=== PATIENT | female | born 1935 | race Caucasian/White ===

== ENCOUNTER 2022-12-29 22:36 | Outpatient (CLI) | payer MEDICARE, OTHER, SELFPAY | END 2022-12-29 22:37 | disposition home or self-care (01) | LOC: AMB 12-31 10:57 | PROVIDERS: Visit Provider Family Medicine | DX: M53.3 Sacrococcygeal disorders, not elsewhere classified (principal) | CPT/HCPCS: A0998 ==

== ENCOUNTER 2023-02-05 10:38 | Inpatient (IN) | payer MEDICARE, SELFPAY ==
[2023-02-05 10:45] VITALS: BP 167/63; PULSE 66; RESP 18; TEMP 35.6; O2SAT 97; BMI 31.5
--- NOTE | 2023-02-05 11:06 | CRLHL7_ITS ---
For Patients: As a result of the Century Cures Act, medical imaging exams and procedure reports are released immediately into your electronic medical record. You may view this report before your referring provider. If you have questions, please contact your health care provider. Indication: Atraumatic knee pain. Technique: Right knee, 3 views. Comparison: None. Findings/Impression: Bones: Alignment is normal. No displaced fractures or bone lesions. Joint spaces: Trace joint effusion. Mild tricompartmental osteoarthritis. Soft tissues: Unremarkable. Dictated by Juan Maxwell MD @ 02/05/2023 12:46:14 PM (Electronically Signed)
--- NOTE | 2023-02-05 12:00 | ED.NURSE ---
Contacted RN at [facility] regarding pt discharge. Read DC instructions to RN. Randall RN stated that facility was not comfortable with pt returning to assisted living due to pt ambulation issues. Randall RN states she will check with facility and call back. notified.
--- NOTE | 2023-02-05 12:16 | ED.NURSE ---
Pt assisted to use restroom. Pt able to stand and pivot to the wheelchair with assist of 2. Pt had significant difficulty pivoting due to pain in R leg. Pt heavy assist of 2 to stand and turn. notified.
--- NOTE | 2023-02-05 12:18 | ED_ITS ---
HPI - General Adult General Date Seen: 02/05/23 Chief complaint: Extremity Pain/Injury, Lower Stated complaint: r knee pain Time Seen by Provider: 02/05/23 11:03 Source: RN notes reviewed Mode of arrival: EMS Limitations: other History of Present Illness HPI narrative: patient is an 87-year-old woman apparently here from an assisted living facility. She has been complaining of increased right knee pain and difficulty with ambulation over the past couple of days. That is the only history that I have, patient is not able to really provide any history, she does have dementia. She was continuously yelling please I need help whenever she was alone in the room, although as soon as some he was in there with her she would stop yelling. There is no reported falls, fevers, or other illness. Related Data Home Medications Medication Instructions Recorded Confirmed acetaminophen 500 mg tablet mg PO 02/05/23 calcium polycarbophil 625 mg 1,250 mg PO DAILY 02/05/23 02/05/23 tablet (Fiber-Lax) diclofenac sodium 1 % topical gel 4 g topical 3XD 02/05/23 02/05/23 docusate sodium 100 mg capsule 100 mg PO DAILY 02/05/23 02/05/23 escitalopram oxalate 10 mg tablet 10 mg PO DAILY anxiety 02/05/23 02/05/23 levothyroxine 100 mcg tablet 100 mcg PO DAILY 02/05/23 02/05/23 omeprazole 20 mg capsule,delayed 20 mg PO DAILY 02/05/23 02/05/23 release oxycodone 5 mg tablet 2.5 mg PO Q6H PRN moderate pain 02/05/23 02/05/23 risperidone 0.5 mg tablet 0.5 mg PO BID 02/05/23 02/05/23 trazodone 50 mg tablet 25 mg PO BID 02/05/23 02/05/23 white petrolatum 41 % topical 1 applic topical BID PRN 02/05/23 02/05/23 ointment (Aquaphor Baby Healing) Allergies Allergy/AdvReac Type Severity Reaction Status Date / Time codeine Allergy Unknown Verified 02/05/23 10:49 Review of Systems Status of ROS: Reports: unobtainable due to medical condition ( Dementia) PFSH PFS Social History Smoking Status: Unknown if ever smoked Exam Narrative: Exam Narrative: Vital signs reviewed. In general, alert, nontoxic elderly woman. Extremities: Examination of bilateral knee shows no effusion, erythema, warmth. She does not really cooperate with exam, difficult to assess range of motion. Distal CMS is normal, there is no significant edema. Skin: Warm dry well perfused. Neurologic: She is conversant, speech fluent. Unable to answer most questions including which knee is hurting her more. Const: Vital Signs, click to edit/add: Vital Signs - 24 hr 02/05/23 10:45 02/05/23 13:27 Temperature 96.1 F L Pulse Rate [Pulse Oximeter] 66 76 Respiratory Rate 18 Blood Pressure [Ri ght Upper Arm] 167/63 H 225/93 H Pulse Oximetry 97 97 Oxygen Delivery Me thod Room Air Room Air Documenting provider has reviewed patient's vital signs: yes Course Course Hospital Course: I did x-rays of the right knee which by my review did not show evidence of fracture. Degenerative changes noted. Final radiology read is negative, aside from trace joint effusion. Initially I had thought we would let her go home, but apparently she is in the memory care unit, technically assisted living, and they cannot manage her right now. I was told that a bed would be available in long-term care starting tomorrow. I did broaden her evaluation a little bit, checked basic labs, did an x-ray of her hip. I do not see any evidence of hip fracture. Her white blood cell count is normal, hemoglobin is 8.8, baseline is unknown. Her sed rate is elevated at 49. Metabolic panel is normal, CRP is normal at 0.8. With someone sitting in the room she was peaceful and quiet, she was doing some knitting. She sitting in chair without difficulty. She does complain of pain when she stands and tries to pivot on the right leg. I gave her oxycodone 2.5 mg as that is what she has for pain at the care facility. Plan will be admissi on to the hospital, pending placement in long-term care. Vital Signs Vital signs: Initial Vital Signs Temperature 96.1 F L 02/05/23 10:45 Temperature Source Temporal Artery Scan 02/05/23 10:45 Pulse Rate 66 02/05/23 10:45 Respiratory Rate 18 02/05/23 10:45 Blood Pressure 167/63 H 02/05/23 10:45 Blood Pressure Mean 97 02/05/23 10:45 Blood Pressure Position Sitting 02/05/23 10:45 Pulse Oximetry 97 02/05/23 10:45 Oxygen Delivery Method Room Air 02/05/23 10:45 Vital Signs Temperature 96.1 F L 02/05/23 10:45 Pulse Rate 66 02/05/23 10:45 Respiratory Rate 18 02/05/23 10:45 Blood Pressure 167/63 H 02/05/23 10:45 Pulse Oximetry 97 02/05/23 10:45 Oxygen Delivery Method Room Air 02/05/23 10:45 Temperature 96.1 F L 02/05/23 10:45 Pulse Rate 76 02/05/23 13:27 Respiratory Rate 18 02/05/23 10:45 Blood Pressure 225/93 H 02/05/23 13:27 Pulse Oximetry 97 02/05/23 13:27 Oxygen Delivery Method Room Air 02/05/23 13:27 Medical Decision Making Lab Data Labs: Lab Results 02/05/23 Range/Units 12:55 WBC 5.10 (4.50-11.00) K/uL RBC 3.28 L (4.00-5.20) m/uL Hgb 8.8 L (12.0-16.0) gm/dL Hct 29.3 L (33.0-51.0) % MCV 89 (80-100) fL MCH 27 (26-34) pg MCHC 30 L (32-36) gm/dL RDW Coeff of [place] 16.2 H (11.5-15.5) % Plt Count 155 (140-440) K/uL Neut % (Auto) 75.9 H (42.0-72.0) % Lymph % (Auto) 14.3 L (20-44) % [place] % (Auto) 6.9 (0.0-11.0) % Eos % (Auto) 2.5 (0.0-7.0) % Baso % (Auto) 0.4 (0.0-3.0) % Neut # (Auto) 3.90 (1.7-7.0) K/uL Lymph # (Auto) 0.70 L (0.90-2.90) K/uL [place] # (Auto) 0.40 (0.00-0.90) K/UL Eos # (Auto) 0.13 (0.00-0.50) K/uL Baso # (Auto) 0.02 (0.00-0.30) K/uL Abs Immat Gran (auto) 0.00 (0.00-0.30) K/uL Imm/Tot Granulo (auto) 0.0 % ESR 49 H (2-20) mm/hr Sodium 136 (135-149) mmol/L Potassium 4.1 (3.6-5.1) mmol/L Chloride 104 (96-114) mmol/L Carbon Dioxide 27 (20-32) mmol/L Anion Gap 5 L (7-15) mEq/L BUN 29 (7-30) mg/dL Creatinine 0.7 (0.5-1.5) mg/dL Estimated Creat Clear 40.74 Estimated GFR 84 ml/min Glucose 108 (60-115) mg/dL Calcium 8.1 L (8.4-10.6) mg/dL Total Bilirubin 0.2 (0.1-1.5) mg/dL Direct Bilirubin 0.0 (0.0-0.5) mg/dL AST 34 (12-35) U/L ALT 30 (4-35) U/L Alkaline Phosphatase 115 (40-150) U/L C-Reactive Protein 0.8 (0.5-1.0) mg/dL Total Protein 7.7 (6.0-8.3) g/dL Albumin 3.8 (3.3-5.0) g/dL Discharge Plan Discharge Clinical Impression: Knee pain, right Patient Disposition: [facility] Condition: Stable Instructions: Knee Pain (ED) Additional Instructions: Her x-rays are negative, knee exam is normal. Orthopedic follow-up would be reasonable if she continues to have increased pain. For now, she is on appropriate medications for pain. Ice may be helpful. If she develops redness or swelling, return for re-evaluation. Prescriptions: No Action acetaminophen 500 mg tablet PO Aquaphor Baby Healing 41 % ointment 1 applic topical BID PRN calcium polycarbophil [Fiber-Lax] 625 mg tablet 1,250 mg PO DAILY trazodone 50 mg tablet 25 mg PO BID levothyroxine 100 mcg tablet 100 mcg PO DAILY docusate sodium 100 mg capsule 100 mg PO DAILY omeprazole 20 mg capsule,delayed release(DR/EC) 20 mg PO DAILY risperidone 0.5 mg tablet 0.5 mg PO BID oxycodone 5 mg tablet 2.5 mg PO Q6H PRN (Reason: moderate pain) escitalopram oxalate 10 mg tablet 10 mg PO DAILY diclofenac sodium 1 % gel 4 g topical 3XD Stand Alone Forms: MyHealth Info Instructions
--- NOTE | 2023-02-05 12:25 | CRLHL7_ITS ---
For Patients: As a result of the Century Cures Act, medical imaging exams and procedure reports are released immediately into your electronic medical record. You may view this report before your referring provider. If you have questions, please contact your health care provider. Indication: Trauma. Technique: Pelvis/right hip, 4 views. Comparison: None. Findings/Impression: Bones: Alignment is normal. No displaced fractures or bone lesions. If pain persists and patient is unable to bear weight, consider cross-sectional imaging. Joint spaces: Unremarkable. Soft tissues: Unremarkable. Dictated by Juan Maxwell MD @ 02/05/2023 3:22:44 PM (Electronically Signed)
[2023-02-05] MEDS: OXYCODONE 5 MG TABLET 2.5 MG PO (12:51)
[2023-02-05 13:10] LABS: Basophils Absolute Auto 0.02 K/uL (0.00-0.30); Basophils Percent Auto 0.4 % (0.0-3.0); Eosinophils Absolute Auto 0.13 K/uL (0.00-0.50); Eosinophils Percent Auto 2.5 % (0.0-7.0); Hematocrit 29.3 % (33.0-51.0); Hemoglobin* 8.8 gm/dL (12.0-16.0); Lymphocytes Percent Auto 14.3 % (20-44); Mean Corpuscular HGB Conc 30 gm/dL (32-36); Mean Corpuscular Hemoglobin 27 pg (26-34); Mean Corpuscular Volume 89 fL (80-100); Monocytes Percent Auto 6.9 % (0.0-11.0); Neutrophils Percent Auto 75.9 % (42.0-72.0); Platelet Count* 155 K/uL (140-440); RDW Coefficient of Variation % 16.2 % (11.5-15.5); Red Blood Count 3.28 m/uL (4.00-5.20)
[2023-02-05 13:17] LABS: Slide Review Reflex No
[2023-02-05 13:23] LABS: Chloride* 104 mmol/L (96-114); Sodium* 136 mmol/L (135-149)
[2023-02-05 13:24] LABS: Albumin* 3.8 g/dL (3.3-5.0); Potassium* 4.1 mmol/L (3.6-5.1)
[2023-02-05 13:27] VITALS: BP 225/93; PULSE 76; O2SAT 97
[2023-02-05 13:27] LABS: Alanine Aminotransferase* 30 U/L (4-35); Alkaline Phosphatase* 115 U/L (40-150); Anion Gap 5 mEq/L (7-15); Aspartate Amino Transferase* 34 U/L (12-35); Bilirubin Total* 0.2 mg/dL (0.1-1.5); Blood Urea Nitrogen* 29 mg/dL (7-30); Calcium* 8.1 mg/dL (8.4-10.6); Carbon Dioxide* 27 mmol/L (20-32); Creatinine* 0.7 mg/dL (0.5-1.5); Est. Creatinine Clearance* 40.74; Estimated Glomerular Filt Rate 84 ml/min; Glucose* 108 mg/dL (60-115); Total Protein* 7.7 g/dL (6.0-8.3)
[2023-02-05 13:30] LABS: C Reactive Protein* 0.8 mg/dL (0.5-1.0)
--- NOTE | 2023-02-05 13:32 | ED.NURSE ---
Sitter in room with pt. Pt provided with meal tray in bed.
[2023-02-05 13:59] LABS: Erythrocyte SedimentationRate* 49 mm/hr (2-20)
--- NOTE | 2023-02-05 14:11 | ED.NURSE ---
Assisted pt out of bed and onto commode. Pt heavy assist of 2-3. Pt is able to stand with assist of 2-3 and then sit back down, but has trouble pivoting or turning at all due to her R leg pain. Pt placed in recliner after using commode. Sitter in room with pt.
--- NOTE | 2023-02-05 14:49 | ED.NURSE ---
Report called to M/S RN.
--- NOTE | 2023-02-05 16:06 | P.IMHP_ITS ---
Hospitalist- H&P: HPI History of Present Illness Date Seen: 02/05/23 Chief complaint: r knee pain Narrative: Lizzie Chavis is a 87 year old female resident of memory care in [place] brought to the emergency room for severe right knee pain keeping her from walking. Patient has dementia is unable to give significant history. She has been noted to be unable to bear weight on her right knee and complains of pain. No known injury. Other than her right knee pain she denies any other concerns though history is of uncertain reliability due to dementia [facility] Medical History (Updated 02/05/23 @ 16:03 by Axel Nunes MD) Dementia ?F03.90 - Unspecified dementia, unspecified severity, without behavioral disturbance, psychotic disturbance, mood disturbance, and anxiety (ICD-10) Dyslipidemia ?E78.5 - Hyperlipidemia, unspecified (ICD-10) Hypothyroidism ?E03.9 - Hypothyroidism, unspecified (ICD-10) GERD (gastroesophageal reflux disease) ?K21.9 - Gastro-esophageal reflux disease without esophagitis (ICD-10) Hypertension ?I10 - Essential (primary) hypertension (ICD-10) 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) Lymphedema ?I89.0 - Lymphedema, not elsewhere classified (ICD-10) Anemia ?D64.9 - Anemia, unspecified (ICD-10) Surgical History (Updated 02/05/23 @ 16:05 by Axel Nunes MD) History of hysterectomy for benign disease ?Z90.710 - Acquired absence of both cervix and uterus (ICD-10) 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) ?Z90.49 - Acquired absence of other specified parts of digestive tract (ICD- 10) History of esophagogastroduodenoscopy (EGD) ?Z98.890 - Other specified postprocedural states (ICD-10) History of cholecystectomy ?Z90.49 - Acquired absence of other specified parts of digestive tract (ICD- 10) History of cataract extraction ?Z98.49 - Cataract extraction status, unspecified eye (ICD-10) History of appendectomy ?Z90.49 - Acquired absence of other specified parts of digestive tract (ICD- 10) Social History (Updated 02/05/23 @ 16:09 by Axel Nunes MD) Narrative: She is a resident of memory care in [place]. Her son Thong is listed as primary contact. [phone]. She does not smoke. She does not drink alcohol. Smoking Status: Unknown if ever smoked Meds Home Medications and Allergies Home Medications Medication Instructions Recorded Confirmed Type acetaminophen 500 mg tablet 1,000 mg PO TID 02/05/23 02/05/23 History calcium polycarbophil 625 mg 1,250 mg PO DAILY 02/05/23 02/05/23 History tablet (Fiber-Lax) camphor-menthol 0.5 %-0.5 % lotion 1 applic topical BID 02/05/23 02/05/23 History (Anti-Itch (menthol-camphor)) cholecalciferol (vitamin D3) 50 50 mcg PO DAILY 02/05/23 02/05/23 History mcg (2,000 unit) capsule (D3-2000) diclofenac sodium 1 % topical gel 4 g topical 3XD 02/05/23 02/05/23 History docusate sodium 100 mg capsule 100 mg PO DAILY 02/05/23 02/05/23 History escitalopram oxalate 10 mg tablet 10 mg PO DAILY@20 anxiety 02/05/23 02/05/23 History levothyroxine 100 mcg tablet 100 mcg PO DAILY 02/05/23 02/05/23 History omeprazole 20 mg capsule,delayed 20 mg PO DAILY 02/05/23 02/05/23 History release oxycodone 5 mg tablet 2.5 mg PO Q6H PRN moderate pain 02/05/23 02/05/23 History risperidone 0.5 mg tablet 0.5 mg PO BID 02/05/23 02/05/23 History saliva stimulant comb. no.3 1 spray mucous membrane QID PRN 02/05/23 02/05/23 History sennosides 8.6 mg tablet (senna) 8.6 mg PO BID PRN 02/05/23 02/05/23 History trazodone 50 mg tablet 25 mg PO BID@16,20 02/05/23 02/05/23 History white petrolatum 41 % topical 1 applic topical BID 02/05/23 02/05/23 History ointment (Aquaphor Baby Healing) Allergies Allergy/AdvReac Type Severity Reaction Status Date / Time codeine Allergy Unknown Verified 02/05/23 10:49 Exam Narrative: Exam Narrative: She is sitting in a chair crocheting. She is hard of hearing. She is pleasant and cooperative without obvious agitation. Head is normal without trauma. Eyes normal. Faint no facial asymmetry. Oropharynx is normal. Neck is supple without mass or adenopathy. Respirations are clear to auscultation. Cardiovascular: S1, S2, 1 to 2/6 systolic ejection murmur heard across the precordium. Abdomen is soft. Bowel sounds are active. There is no tenderness or mass. Upper extremities are normal. Lower extremities have 2 to 3+ edema bilaterally. Inspection shows no apparent trauma. She tolerates range of motion in both hips without significant discomfort. Palpation over her thighs non, nontender. Palpation over her anterior right knee is mildly tender. She has a minimal joint effusion present there. There is no redness or warmth left knee is normal without tenderness. Edema at the ankles at 2 to 3+ bilaterally. She has intact pedal pulses. She has mild discomfort with flexion extension of the right knee and quite limited range of motion. Left knee without significant pain but also limited range of motion. Both knees extend to within about 10? of full extension. Const: Vital Signs, click to edit/add: Vital Signs - 24 hr 02/05/23 10:45 02/05/23 13:27 Temperature 96.1 F L Pulse Rate [Pulse Oximeter] 66 76 Respiratory Rate 18 Blood Pressure [Ri ght Upper Arm] 167/63 H 225/93 H Pulse Oximetry 97 97 Oxygen Delivery Me thod Room Air Room Air Documenting provider has reviewed patient's vital signs: yes Hospitalist - H&P: Result Labs Labs: Short CBC 02/05/23 Range/Units 12:55 WBC 5.10 (4.50-11.00) K/uL Hgb 8.8 L (12.0-16.0) gm/dL Hct 29.3 L (33.0-51.0) % Plt Count 155 (140-440) K/uL BMP 02/05/23 12:55 Sodium 136 Potassium 4.1 Chloride 104 Carbon Dioxide 27 BUN 29 Creatinine 0.7 Glucose 108 Calcium 8.1 L Liver Function 02/05/23 Range/Units 12:55 Total Bilirubin 0.2 (0.1-1.5) mg/dL Direct Bilirubin 0.0 (0.0-0.5) mg/dL AST 34 (12-35) U/L ALT 30 (4-35) U/L Alkaline Phosphatase 115 (40-150) U/L Albumin 3.8 (3.3-5.0) g/dL Imaging Right knee and hip radiographs: Attestation: I have reviewed the pertinent imaging results. (Right knee has some changes consistent with arthritis. Right hip is unremarkable. No fracture.) Assessment and Plan Assessment and plan (1) Knee pain, right: Status: Acute (2) Dementia: Status: Acute (3) Lymphedema: Status: Acute (4) Anemia: Problem comment: Normocytic, chronic, hemoglobin in September of 2015 was 9.4, hemoglobin in April 2022 was 10.3. Status: Acute Plan Patient is admitted to the hospital pending placement in a higher level of care. Indication for the higher level of care is fairly severe dementia combined with fairly severe right knee pain and disability. Could consider a intra-articular cortisone injection in that right knee. Uncertain how well patient would cooperate. Total time spent is 60 minutes, 45 minutes in coordination care and discussing with other providers ongoing evaluation management of knee pain and dementia
[2023-02-05 16:11] VITALS: BP 182/98; PULSE 74; RESP 18; TEMP 36.5; O2SAT 98; BMI 32.3
[2023-02-05] MEDS: TRAZODONE HCL 50 MG TABLET 25 MG PO ×2 (16:44→20:22)
--- NOTE | 2023-02-05 17:10 | PC.SOCIAL ---
Discharge plan: Spoke with nurse, Dottie at memory care on [facility] [phone] from the ED. Dottie stated she had spoken with [facility] and they had a bed for pt for admit tomorrow and had already spoken with family about the SNF stay being private pay. Called Pepper in admissions at [facility] who states they are not contracted with pt's insurance and have not been paid from her last stay at their facility so they can not accept pt to the nursing home facility. gas systems worker to follow up as needed regarding placement.
--- NOTE | 2023-02-05 18:54 | PC.NURSE ---
Dottie, nurse from [facility] returned call from medical underwriter and gave brief nurse to nurse report. Dottie states pt takes pills whole and feeds self. Pt up till yesterday 02/04 was dressing self with clothes set out. Pt up till 02/04 brushed teeth and hair with set up only. Pt has no food allergies per Dottie and pt drinks lots of decaf coffee. Pt also scratches upper torso and arms unconsciously during the day and uses aquaphor lotion bid. Pt walks indept with walker normally. Pt did receive 2/5 mg x3 doses yesterday for rt knee pain per Dottie. Pt wears brief for stress incont but is continent of bowel and bladder. Dottie is unsure of pt's last BM.
[2023-02-05 19:00] VITALS: BP 188/70; PULSE 110; RESP 18; TEMP 36.8; O2SAT 96
[2023-02-05] MEDS: risperiDONE 0.5 MG TABLET PO (20:22)
[2023-02-05] MEDS: ACETAMINOPHEN 500 MG TABLET 1000 MG PO (20:22)
[2023-02-06] VITALS (7 sets, daily range): BP systolic 170–200; BP diastolic 70–98; PULSE 63–69; RESP 14–18; TEMP 36.8–36.9; O2SAT 95–98
[2023-02-06] MEDS: OXYCODONE 5 MG TABLET 2.5 MG PO (05:39)
--- NOTE | 2023-02-06 06:21 | PC.NURSE ---
Oriented to self only. Patient requires EZ stand for transfers, patient tolerated transfers well. Up x 4 between [id number] to use the restroom, patient attempting to self transfer out of bed at those time. Remains continent of bladder and bowel. Patient had several hours of yelling out please help me, oh god please hurry when answering patients calling out she becomes call and many times is unsure why she is calling out, not able to redirect patient. Patient sounds distressed with calling out and becomes louder when yelling. Pain to right knee reported at 0545, administered 2.5mg of oxycodone for pain. Assisted to chair at 0615.
[2023-02-06] MEDS: LEVOTHYROXINE 100 MCG TABLET PO (06:50)
[2023-02-06] MEDS: OMEPRAZOLE 20 MG CAPSULE DR PO (08:29)
[2023-02-06] MEDS: ACETAMINOPHEN 500 MG TABLET 1000 MG PO ×3 (08:29→20:10)
[2023-02-06] MEDS: PSYLLIUM HUSK (WITH SUGAR) 12 GM PACKET PO (08:29)
[2023-02-06] MEDS: risperiDONE 0.5 MG TABLET PO ×2 (08:29→20:16)
--- NOTE | 2023-02-06 09:21 | P.IMPN_ITS ---
Progress Note: A&P Assessment and plan (1) Knee pain, right: Problem details: - ddx: age related changes vs PMR (anemia with elevated ESR, although no other joint complaints, anemia is chronic and normocytic) - appreciate input from therapies - cognitive impairment limits ability to tolerate intra-articular injection Status: Acute (2) Dementia: Problem details: - no agitation, on Risperdone Status: Acute (3) Lymphedema: Problem details: - stable Status: Acute (4) Anemia: Problem details: - normocytic, chronic: Hgb 07/09 was 8.9, Hgb in 05/08 was 10.3, Hgb in September of 2015 was 9.4 Status: Acute Plan - await placement for rehab - appreciate input from PT/OT/SW - deanna Benito updated by phone, questions answered. DNR/DNI status confirmed (noted on POLST form as well) Subjective Date Seen: 02/06/23 Interval history: Lizzie had some anxiety overnight, no aggression or agitation. Received one dose of Oxycodone overnight, no complaints of knee pain for me this morning. She is awaiting therapy evaluations; will likely need SNF upon discharge. Hgb 8.8 (stable, outpatient baseline 9-10), normocytic. No evidence of acute bleeding. Exam Narrative: Exam Narrative: GEN: Alert and pleasant, sitting comfortably in bedside chair CV: RRR, holosystolic murmur heard best RSB R: LCTA bilaterally without concerning wheezing, air movement adequate Ext: symmetric 2+ pitting edema BLE, no significant effusion or erythema over R knee, tolerates palpation well during exam Skin: No concerning skin lesions or rashes on exposed skin Neuro: No focal deficits, no resting tremor Psych: Cognitive impairment is evident, no agitation Const: Vital Signs, click to edit/add: Vital Signs - 24 hr 02/05/23 10:45 02/05/23 13:27 02/05/23 16:11 Temperature 96.1 F L 97.7 F Pulse Rate [Pulse Oximeter] 66 76 Pulse Rate [Right Brachial] 74 Pulse Rate [Right Pulse Oximeter] Respiratory Rate 18 18 Blood Pressure [Ri ght Arm] 182/98 H Blood Pressure [Ri ght Upper Arm] 167/63 H 225/93 H Pulse Oximetry 97 97 98 Oxygen Delivery Me thod Room Air Room Air Room Air 02/05/23 19:00 08/23/23 03:00 02/06/23 08:03 Temperature 98.3 F 98.3 F Pulse Rate [Pulse Oximeter] Pulse Rate [Right Brachial] Pulse Rate [Right Pulse Oximeter] 110 H 67 Respiratory Rate 18 14 16 Blood Pressure [Ri ght Arm] 188/70 H 175/70 H Blood Pressure [Ri ght Upper Arm] Pulse Oximetry 96 97 Oxygen Delivery Me thod Room Air Room Air Labs Labs: Laboratory Results - last 24 hr 02/05/23 12:55 WBC 5.10 RBC 3.28 L Hgb 8.8 L Hct 29.3 L MCV 89 MCH 27 MCHC 30 L RDW Coeff of [place] 16.2 H Plt Count 155 Neut % (Auto) 75.9 H Lymph % (Auto) 14.3 L [place] % (Auto) 6.9 Eos % (Auto) 2.5 Baso % (Auto) 0.4 Neut # (Auto) 3.90 Lymph # (Auto) 0.70 L [place] # (Auto) 0.40 Eos # (Auto) 0.13 Baso # (Auto) 0.02 Abs Immat Gran (auto) 0.00 Imm/Tot Granulo (auto) 0.0 ESR 49 H Sodium 136 Potassium 4.1 Chloride 104 Carbon Dioxide 27 Anion Gap 5 L BUN 29 Creatinine 0.7 Estimated Creat Clear 40.74 Estimated GFR 84 Glucose 108 Calcium 8.1 L Total Bilirubin 0.2 Direct Bilirubin 0.0 AST 34 ALT 30 Alkaline Phosphatase 115 C-Reactive Protein 0.8 Total Protein 7.7 Albumin 3.8
[2023-02-06 13:25] LABS: Appearance Urine Clear (Clear); Bilirubin Urine Negative (Negative); Blood Urine Negative (Negative); Color Urine Yellow (Yellow); Glucose Urine Negative (Negative); Ketones Urine Negative (Negative); Leukocyte Esterase Urine Trace (Negative); Nitrite Urine Positive (Negative); Protein Urine 1+ (Negative); Urobilinogen Urine 0.2 (0.2-1.0)
[2023-02-06 13:33] LABS: Bacteria Urine Many; RBC Urine 0-2 (0-2)
--- NOTE | 2023-02-06 17:06 | PC.SOCIAL ---
Addendum entered by GERA Bailey 02/08/23 15:12: Correction of note: Pt's son's name is Thong, not Manish. Original Note: Discharge planning: Called pt's sonManish, regarding d/c plan. Son is requesting placement in a facility that can meet pt's needs. He requested social worker school contact [facility] [place]. Son is aware placement will most likely be private pay and he is agreeable to this. Pt has assisted care insurance which has been used for the [facility] assisted living stay. Emailed list of fci facilities to son. If [facility] does nto accept pt, son will provide list of additional facilities to contact for placement. Called [facility] and faxed information for evaluation for admit. Awaiting call back from [facility] regarding decision on admit. drop pit worker to follow up as needed.
[2023-02-06] MEDS: TRAZODONE HCL 50 MG TABLET 25 MG PO ×2 (17:18→20:11)
--- NOTE | 2023-02-06 18:39 | PC.NURSE ---
End of shift- Alert only to self. VS on RA, HTN BP, pt reports pain in her R knee when there is any weight bearing. Sometimes will call out help me, and yells out random phrases. Has been entertained with wheelchair rides as well as a baby doll. Currently waiting for placement to a SNF. UA was obtained today because of frequency as well as foul smelling urine. Had bacteria present, but hard to know if she is symptomatic so per Dr Nunes no treatment with Abx.
[2023-02-07] MEDS: risperiDONE 0.5 MG TABLET 0.25 MG PO (01:48)
[2023-02-07 03:00] VITALS: RESP 18
--- NOTE | 2023-02-07 06:51 | PC.NURSE ---
Shift note: Pt has been confused with agitations. Frequently calls by yelling and attempt to self transfer several times. Bed alarm has been in place and Risperidone PRN given which appeared partially effective. Pt had frequency of urination. Restful night in place.
[2023-02-07] MEDS: LEVOTHYROXINE 100 MCG TABLET PO (06:57)
[2023-02-07 07:00] VITALS: BP 150/70; PULSE 71; RESP 18; TEMP 36.1; O2SAT 98
[2023-02-07 07:18] LABS: Basophils Percent Auto 0.2 % (0.0-3.0); Hematocrit 31.7 % (33.0-51.0); Hemoglobin* 9.5 gm/dL (12.0-16.0); Immature Granulocytes Pct Auto 0.2 %; Lymphocytes Percent Auto 12.6 % (20-44); Mean Corpuscular HGB Conc 30 gm/dL (32-36); Mean Corpuscular Hemoglobin 27 pg (26-34); Mean Corpuscular Volume 88 fL (80-100); Monocytes Percent Auto 6.7 % (0.0-11.0); Neutrophils Percent Auto 77.3 % (42.0-72.0); Platelet Count* 157 K/uL (140-440); Red Blood Count 3.59 m/uL (4.00-5.20); White Blood Count* 4.06 K/uL (4.50-11.00)
[2023-02-07 07:20] LABS: Slide Review Reflex No
[2023-02-07 07:25] LABS: Chloride* 103 mmol/L (96-114); Potassium* 4.7 mmol/L (3.6-5.1); Sodium* 136 mmol/L (135-149)
[2023-02-07 07:27] LABS: Creatinine* 0.7 mg/dL (0.5-1.5); Est. Creatinine Clearance* 40.74; Estimated Glomerular Filt Rate 84 ml/min
[2023-02-07 07:28] LABS: Anion Gap 4 mEq/L (7-15); Blood Urea Nitrogen* 21 mg/dL (7-30); Calcium* 8.8 mg/dL (8.4-10.6); Carbon Dioxide* 29 mmol/L (20-32); Glucose* 123 mg/dL (60-115)
[2023-02-07] MEDS: PSYLLIUM HUSK (WITH SUGAR) 12 GM PACKET PO (09:05)
[2023-02-07] MEDS: ACETAMINOPHEN 500 MG TABLET 1000 MG PO ×3 (09:06→20:37)
[2023-02-07] MEDS: risperiDONE 0.5 MG TABLET PO ×2 (09:06→20:36)
[2023-02-07] MEDS: DOCUSATE SODIUM 100 MG CAPSULE PO (09:06)
[2023-02-07] MEDS: OMEPRAZOLE 20 MG CAPSULE DR PO (09:06)
--- NOTE | 2023-02-07 10:55 | P.IMPN_ITS ---
Progress Note: A&P Assessment and plan (1) Knee pain, right: Problem details: - ddx: age related changes vs PMR (anemia with elevated ESR, although no other joint complaints, anemia is chronic and normocytic) - appreciate input from therapies - cognitive impairment limits ability to tolerate intra-articular injection Status: Acute (2) Dementia: Problem details: - no agitation but does seem frustrated when alone, on Risperdone - reviewed case with Dipak Ojeda DNP ([facility]) on 02/07: no new med recommendations at this time, continue to support activities Status: Acute (3) Lymphedema: Problem details: - stable Status: Acute (4) Anemia: Problem details: - normocytic, chronic: Hgb 07/09 was 8.9, Hgb in 05/08 was 10.3, Hgb in September of 2015 was 9.4 - current Hgb 9.5 Status: Acute Plan - per above - await SNF placement Subjective Date Seen: 02/07/23 Interval history: Lizzie continues to have intermittent anxiety, primarily when left in her room. If she is unable to see caregivers, she will often yell for help. During the day yesterday, she sat out by the nurses station and did well. We continue to offer activities throughout the day for her. Has not had Oxycodone in the past 24 hours, remains on scheduled Tylenol. Hgb stable and baseline without evidence of acute bleeding. Urine culture growing GNRs, unclear if she is having any true UTI symptoms. Deferring antibiotic therapy at this time. Exam Narrative: Exam Narrative: GEN: Awake and sitting in hallway in her wheelchair, cognitive impairment evident, nontoxic HEENT: EOMIs bilaterally, no scleral icterus CV: Pulse palpates as regular rate and rhythm R: Breathing comfortably without tachpynea Ext: 1-2 + edema BLE Skin: No concerning skin lesions or rashes on exposed skin Const: Vital Signs, click to edit/add: Vital Signs - 24 hr 02/06/23 11:25 02/06/23 15:00 02/06/23 19:00 Temperature 98.5 F 98.5 F Pulse Rate [Right Pulse Oximeter] 63 69 68 Respiratory Rate 16 16 16 Blood Pressure [Ri ght Arm] 191/90 H 200/98 H 170/70 H Pulse Oximetry 97 95 98 Oxygen Delivery Me thod Room Air Room Air Room Air 02/06/23 23:00 02/06/23 23:30 02/07/23 03:00 Temperature Pulse Rate [Right Pulse Oximeter] 68 Respiratory Rate 18 18 Blood Pressure [Ri ght Arm] Pulse Oximetry [facility] 02/07/23 07:00 02/07/23 07:00 Temperature 97.0 F L Pulse Rate [Right Pulse Oximeter] 71 71 Respiratory Rate 18 18 Blood Pressure [Ri ght Arm] 150/70 H Pulse Oximetry 98 [facility] Air Labs Labs: Laboratory Results - last 24 hr 02/06/23 02/07/23 13:05 07:04 WBC 4.06 L RBC 3.59 L Hgb 9.5 L Hct 31.7 L MCV 88 MCH 27 MCHC 30 L RDW Coeff of Damion 16.0 H Plt Count 157 Neut % (Auto) 77.3 H Lymph % (Auto) 12.6 L [place] % (Auto) 6.7 Eos % (Auto) 3.0 Baso % (Auto) 0.2 Neut # (Auto) 3.10 Lymph # (Auto) 0.50 L [place] # (Auto) 0.30 Eos # (Auto) 0.10 Baso # (Auto) 0.00 Abs Immat Gran (auto) 0.00 Imm/Tot Granulo (auto) 0.2 Sodium 136 Potassium 4.7 Chloride 103 Carbon Dioxide 29 Anion Gap 4 L BUN 21 Creatinine 0.7 Estimated Creat Clear 40.74 Estimated GFR 84 Glucose 123 H Calcium 8.8 Urine Color Yellow Urine Appearance Clear Urine pH 7.0 Ur Specific [place] 1.020 Urine Protein 1+ A Urine Glucose (UA) Negative Urine Ketones Negative Urine Blood Negative Urine Nitrite Positive A Urine Bilirubin Negative Urine Urobilinogen 0.2 Ur Leukocyte Esterase Trace A Urine RBC 0-2 Urine WBC 2-5 Ur Squamous Epith Cells None Urine Bacteria Many A
[2023-02-07] MEDS: OXYCODONE 5 MG TABLET 2.5 MG PO (11:53)
[2023-02-07 14:26] VITALS: PULSE 67; RESP 18
[2023-02-07] MEDS: TRAZODONE HCL 50 MG TABLET 25 MG PO ×2 (16:52→20:35)
--- NOTE | 2023-02-07 19:12 | PC.NURSE ---
Shift note: Pt. alert and oriented to self. Hx of Dementia. Patient gets agitated and calls frequently by yelling out. Unable to assess pain. Bed alarm has been in place and Risperidone PRN given which appeared partially effective. Pt had frequency of urination throughout shift.
[2023-02-07 22:56] VITALS: RESP 18
[2023-02-07 23:30] VITALS: RESP 16
[2023-02-08 03:00] VITALS: RESP 18
[2023-02-08] MEDS: OXYCODONE 5 MG TABLET 2.5 MG PO (03:21)
--- NOTE | 2023-02-08 06:06 | PC.NURSE ---
Shift note: Pt slept well after 2100 medication until around 0100 where she started yelling and calling for help. Oxycodone 2.5mg given, frequently helped to the BR and fed with 2 slices of bread toast. Offered to stay around nurses station for monitoring.
[2023-02-08] MEDS: LEVOTHYROXINE 100 MCG TABLET PO (06:44)
[2023-02-08 07:00] VITALS: BP 170/79; PULSE 61; RESP 16; TEMP 35.9; O2SAT 96
[2023-02-08] MEDS: OMEPRAZOLE 20 MG CAPSULE DR PO (07:50)
[2023-02-08] MEDS: PSYLLIUM HUSK (WITH SUGAR) 12 GM PACKET PO (08:56)
[2023-02-08] MEDS: DOCUSATE SODIUM 100 MG CAPSULE PO (08:58)
[2023-02-08] MEDS: ACETAMINOPHEN 500 MG TABLET 1000 MG PO ×3 (08:58→20:38)
[2023-02-08] MEDS: risperiDONE 0.5 MG TABLET PO ×2 (09:00→20:38)
--- NOTE | 2023-02-08 14:21 | PM.ORCN ---
History of Present Illness HPI Time Seen by Provider: 13:30 Date Seen: 02/08/23 Consult date: 02/08/23 Requesting physician: Zoë De León Consult reason: joint pain Chief complaint: r knee pain Narrative: Lizzie is an 84 year-old female with advanced dementia. Ortho consulted by Dr. De León regarding right knee pain and inability to weightbear. Patient denies fall/injury, although she is an unreliable historian. Prior to admission to our hospital, Lizzie was able to weightbear with one person assist (gait belt). This morning, Lizzie complains mostly of right knee pain, but also bilateral leg pain and bilateral ankle pain. Patient is unable to bear weight x 1 day. History is quite limited. I witnessed the patient being transferred from the restroom to her recliner using a Desiy lift. Patient tolerated this transfer well without pain. Thirty minutes later, I returned to see Lizzie with Renetta Heller PA-C. Lizzie was resting comfortably in her recliner crocheting. Denies pain at rest. 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) Lymphedema ?I89.0 - Lymphedema, not elsewhere classified (ICD-10) Anemia ?D64.9 - Anemia, unspecified (ICD-10) Surgical History (Updated 02/05/23 @ 16:05 by Axel Nunes MD) History of hysterectomy for benign disease ?Z90.710 - Acquired absence of both cervix and uterus (ICD-10) 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) ?Z90.49 - Acquired absence of other specified parts of digestive tract (ICD-10) History of esophagogastroduodenoscopy (EGD) ?Z98.890 - Other specified postprocedural states (ICD-10) History of cholecystectomy ?Z90.49 - Acquired absence of other specified parts of digestive tract (ICD-10) History of cataract extraction ?Z98.49 - Cataract extraction status, unspecified eye (ICD-10) History of appendectomy ?Z90.49 - Acquired absence of other specified parts of digestive tract (ICD-10) Social History (Updated 02/05/23 @ 16:09 by Axel Nunes MD) Narrative: She is a resident of memory care in [place]. Her son Thong is listed as primary contact. [phone]. She does not smoke. She does not drink alcohol. What is your current living situation?: unable to answer Problems where you live: unable to answer Problems where you live details: increased eeds In the past 12 months, utilities in danger of being shut off: unable to answer In the past 12 mos, have been you worried that your food would run out before you had money to buy more?: unable to answer In the past 12 mos, the food you bought just didn't last and you didn't have money to buy more?: unable to answer Highest level of school completed/degree received: don't know Smoking Status: Unknown if ever smoked Second hand tobacco smoke exposure: No How often does anyone, including family, friends and others, physically hurt you: unable to answer How often does anyone, including family, friends and others, insult or talk down to you: unable to answer How often does anyone, including family, friends and others, threaten you with harm: unable to answer How often does anyone, including family, friends and others, scream or curse at you: unable to answer Meds Home Medications and Allergies Home Medications Medication Instructions Recorded Confirmed Type acetaminophen 500 mg tablet 1,000 mg PO TID 02/05/23 02/05/23 History calcium polycarbophil 625 mg 1,250 mg PO DAILY 02/05/23 02/05/23 History tablet (Fiber-Lax) camphor-menthol 0.5 %-0.5 % lotion 1 applic topical BID 02/05/23 02/05/23 History (Anti-Itch (menthol-camphor)) cholecalciferol (vitamin D3) 50 50 mcg PO DAILY 02/05/23 02/05/23 History mcg (2,000 unit) capsule (D3-2000) diclofenac sodium 1 % topical gel 4 g topical 3XD 02/05/23 02/05/23 History docusate sodium 100 mg capsule 100 mg PO DAILY 02/05/23 02/05/23 History escitalopram oxalate 10 mg tablet 10 mg PO DAILY@20 anxiety 02/05/23 02/05/23 History levothyroxine 100 mcg tablet 100 mcg PO DAILY 02/05/23 02/05/23 History omeprazole 20 mg capsule,delayed 20 mg PO DAILY 02/05/23 02/05/23 History release oxycodone 5 mg tablet 2.5 mg PO Q6H PRN moderate pain 02/05/23 02/05/23 History risperidone 0.5 mg tablet 0.5 mg PO BID 02/05/23 02/05/23 History saliva stimulant comb. no.3 1 spray mucous membrane QID PRN 02/05/23 02/05/23 History sennosides 8.6 mg tablet (senna) 8.6 mg PO BID PRN 02/05/23 02/05/23 History trazodone 50 mg tablet 25 mg PO BID@16,20 02/05/23 02/05/23 History white petrolatum 41 % topical 1 applic topical BID 02/05/23 02/05/23 History ointment (Aquaphor Baby Healing) Allergies Allergy/AdvReac Type Severity Reaction Status Date / Time codeine Allergy Unknown Verified 02/05/23 10:49 Ortho Exam Narrative Exam Narrative: Bilateral lower extremity exam: No erythema, induration or other cutaneous changes. No knee effusion. No ecchymosis throughout bilateral lower extremities. Diffuse bilateral medial knee pain. Diffuse pain throughout lower extremities to moderate palpation. Diffuse bilateral ankle pain. Bilateral knee ROM: 0-90 degrees. Visible valgus deformity to left knee. Right knee appears to have appropriate alignment. Full hip ROM without pain. CMS intact with 2+ Dorsalis pedis and Posterior Tibial pulses, digits pink, warm with brisk cap refill. Confirmed sensation distally. Const Vital Signs, click to edit/add: Vital Signs - 24 hr 02/07/23 14:26 02/07/23 22:56 02/07/23 23:30 Temperature Pulse Rate [Right Pulse Oximeter] 67 Respiratory Rate 18 18 16 Blood Pressure [Right Arm] Pulse Oximetry Oxygen Delivery Method 02/08/23 03:00 02/08/23 07:00 02/08/23 07:00 Temperature 96.6 F L Pulse Rate [Right Pulse Oximeter] 61 61 Respiratory Rate 18 16 Blood Pressure [Right Arm] 170/79 H Pulse Oximetry 96 Oxygen Delivery Method Room Air Documenting provider has reviewed patient's vital signs: yes Results Labs Labs: Laboratory Results - last 48 hr 02/07/23 02/07/23 07:04 11:08 WBC 4.06 L RBC 3.59 L Hgb 9.5 L Hct 31.7 L MCV 88 MCH 27 MCHC 30 L RDW Coeff of Damion 16.0 H Plt Count 157 Neut % (Auto) 77.3 H Lymph % (Auto) 12.6 L [place] % (Auto) 6.7 Eos % (Auto) 3.0 Baso % (Auto) 0.2 Neut # (Auto) 3.10 Lymph # (Auto) 0.50 L [place] # (Auto) 0.30 Eos # (Auto) 0.10 Baso # (Auto) 0.00 Abs Immat Gran (auto) 0.00 Imm/Tot Granulo (auto) 0.2 Sodium 136 Potassium 4.7 Chloride 103 Carbon Dioxide 29 Anion Gap 4 L BUN 21 Creatinine 0.7 Estimated Creat Clear 40.74 Estimated GFR 84 Glucose 123 H Calcium 8.8 TSH 14.400 H Lab Acknowledgement Test Added Diagnostic results Hip x-ray: image reviewed Knee x-ray: image reviewed Assessment and Plan Assessment and plan (1) Knee pain, right: Problem comment: Diffuse bilateral lower extremity pain. Status: Acute Assessment and Plan: Lizzie has diffuse bilateral lower extremity pain, likely the result of a diffuse inflammatory process possibly diet related. She has full range of motion of her right hip and knee without joint pain, but complains of pain everywhere my hands place pressure on her legs. I am uncertain why Lizzie is unable to place weight on her right leg. Right knee and right hip images were reviewed which show no acute fractures. She also does not have ecchymosis nor an effusion. An occult fracture is unlikely. Patient does have moderate medial compartment osteoarthritis, however this is not causing her diffuse lower extremity pain. At this time, I do not believe a cortisone injection would be beneficial. It would not alleviate the majority of her pain and would not likely impact her ability to weightbear. Hospitalist was notified and is in agreement to forgo a cortisone injection. Phone Orthopedics with any further questions/concerns. Total time spent: Total time spent is greater than 50% in coordination of care (as documented) at patient's floor/unit and/or counseling patient:
--- NOTE | 2023-02-08 14:41 | PM.IMPN1 ---
Progress Note: A&P Assessment and plan (1) Knee pain, right: Problem details: - diffuse bilateral lower extremity pain, appreciate input from therapies and Ortho - reassuring imaging, no lateralizing findings on exam Status: Acute (2) Dementia: Problem details: - intermittent agitation and frustration when alone, came to the hospital on Risperdone for this and possible hallucinations, could likely be tapered as an outpatient when in a stable setting - reviewed case with Dipak Ojeda DNP ([facility]) on 02/07: no new med recommendations at this time, continue to support activities Status: Acute (3) Lymphedema: Problem details: - stable Status: Acute (4) Anemia: Problem details: - normocytic, chronic: Hgb 07/09 was 8.9, Hgb in 05/08 was 10.3, Hgb in September of 2015 was 9.4 - current Hgb 9.5 Status: Acute (5) Hypothyroidism: Problem details: - TSH of 14 on 02/07 - Synthroid increased from 100mcg to 112 on 02/08 Status: Acute Plan - per above - awaiting Memory Care placement - son updated by phone Subjective Date Seen: 02/08/23 Interval history: Lizzie continues to have intermittent agitation, primarily when alone. She tends to have less yelling and anxiety when someone is in the room with her. She was placed on Risperidone at previous facility for the agitation that accompanies her dementia. Urine growing ESBL, no urinary symptoms evident, deferring antibiotic therapy. Exam Narrative: Exam Narrative: GEN: Laying comfortably in bed, hard of hearing CV: Pulse palpates as RRR R: Breathing comfortably, no tachypnea Ext: wwp, no concerning edema Psych: Cognitive impairment is evident Const: Vital Signs, click to edit/add: Vital Signs - 24 hr 02/07/23 22:56 02/07/23 23:30 02/08/23 03:00 Temperature Pulse Rate [Right Pulse Oximeter] Respiratory Rate 18 16 18 Blood Pressure [Ri ght Arm] Pulse Oximetry Oxygen Delivery Me thod 02/08/23 07:00 02/08/23 07:00 Temperature 96.6 F L Pulse Rate [Right Pulse Oximeter] 61 61 Respiratory Rate 16 Blood Pressure [Ri ght Arm] 170/79 H Pulse Oximetry 96 Oxygen Delivery Me thod Room Air
[2023-02-08 15:00] VITALS: RESP 16
--- NOTE | 2023-02-08 15:12 | PC.SOCIAL ---
Discharge planning: Received call from Rosette at [facility] unit at [facility], stating they expect to have a bed available on Saturday and will accept pt on Saturday between 03-27 after they have reviewed the RN notes from the weekend. Rosette confirmed that [facility] is not contracted with pt's insurance but they have worked with them before and feel confident that this will not be a problem. Pt is going to be private pay at the facility. Called son, Thong, who is aware and agrees with this plan. Thong will contact the implementation coordinator at [facility] to discuss what should be brought for her and payment information. Son states he will not be available Saturday to transport but will be available by phone as needed. Son requested to have pt transported by non-emergency ambulance and is aware and agrees to pay privately for the transportation.
[2023-02-08] MEDS: TRAZODONE HCL 50 MG TABLET 25 MG PO ×2 (15:32→20:11)
--- NOTE | 2023-02-08 18:44 | PC.NURSE ---
Nursing Care Hours: [id number] Pt this shift alert to birthday but forgot last name in morning. Cooperative with cares but anxious when left alone in room and call out frantically for help. Also anxious during EZ stand transfers and yells out in pain. Manager Of Loss Prevention Operations noticed however, talking through each step of the transfer with pt keeps pt calm and no c/o pain reported. Eating and drinking with verbal prompts for starting. Also needs verbal prompts for taking pills. HTN in AM with manual cuff. Pedal pulses bilat feet present. pt wiggles toes of R foot but not of left foot. Tongue drifts off to L side when speaking. Smile equal. Equal strength bilat hands.
[2023-02-08 20:25] VITALS: BP 188/70; PULSE 70; RESP 20; TEMP 36.6; O2SAT 97
[2023-02-08 20:59] VITALS: PULSE 70; RESP 20
[2023-02-08 23:30] VITALS: RESP 16
[2023-02-09 03:00] VITALS: RESP 16
--- NOTE | 2023-02-09 06:08 | PC.NURSE ---
Pt is oriented to self and place. Afebrile. Pt denies pain, chest pain, SOB and N/V. Pt is tolerating a regular diet and voiding.?Pt is up with A2 and Ez stand. Pt slept throughout most of night.?Night uneventful. Pt did not require PHILLIP 1:1 overnight.
[2023-02-09] MEDS: LEVOTHYROXINE 112 MCG TABLET PO (06:33)
[2023-02-09 07:00] VITALS: BP 182/80; PULSE 66; RESP 18; TEMP 36.5; O2SAT 99
[2023-02-09] MEDS: OMEPRAZOLE 20 MG CAPSULE DR PO (07:30)
[2023-02-09] MEDS: ACETAMINOPHEN 500 MG TABLET 1000 MG PO ×3 (08:30→20:19)
[2023-02-09] MEDS: DOCUSATE SODIUM 100 MG CAPSULE PO (08:31)
[2023-02-09] MEDS: PSYLLIUM HUSK (WITH SUGAR) 12 GM PACKET PO (08:31)
--- NOTE | 2023-02-09 09:32 | PM.IMPN1 ---
Progress Note: A&P Assessment and plan (1) Knee pain, right: Problem details: - diffuse bilateral lower extremity pain, appreciate input from therapies and Ortho - reassuring imaging, no lateralizing findings on exam Status: Acute (2) Hypothyroidism: Problem details: - TSH of 14 on 02/07 - Synthroid increased from 100mcg to 112 on 02/08 -02/09; will check FT4 to make sure patient doesn't have subclinical hypothyroidism Status: Acute (3) Dementia: Problem details: - intermittent agitation and frustration when alone, came to the hospital on Risperdone for this and possible hallucinations, could likely be tapered as an outpatient when in a stable setting - reviewed case with Dipak Ojeda DNP ([facility]) on 02/07: no new med recommendations at this time, continue to support activities Status: Acute (4) Lymphedema: Problem details: - stable Status: Acute (5) Anemia: Problem details: - normocytic, chronic: Hgb 07/09 was 8.9, Hgb in 05/08 was 10.3, Hgb in September of 2015 was 9.4 Status: Acute Subjective Date Seen: 02/09/23 Interval history: no acute events overnight hypertensive this am complains of itching hx limited by dementia Exam Narrative: Exam Narrative: Gen: no acute distress HEENT: NCAT EOMI mmm CV: RRR normal s1 s2 Lungs: CTAB Abd: Soft,nt, nd Neuro: Alert, not oriented, nonfocal screening?exam MSK: age appropriate muscle mass Const: Vital Signs, click to edit/add: Vital Signs - 24 hr 02/08/23 15:00 02/08/23 20:25 02/08/23 20:59 Temperature 97.8 F Pulse Rate [Right Pulse Oximeter] 70 70 Respiratory Rate 16 20 20 Blood Pressure [Ri ght Arm] 188/70 H Pulse Oximetry 97 Oxygen Delivery Me thod Room Air 02/08/23 23:30 02/09/23 03:00 02/09/23 07:00 Temperature 97.7 F Pulse Rate [Right Pulse Oximeter] 66 Respiratory Rate 16 16 18 Blood Pressure [Ri ght Arm] 182/80 H Pulse Oximetry 99 Oxygen Delivery Me thod Room Air 02/09/23 07:00 Temperature Pulse Rate [Right Pulse Oximeter] 66 Respiratory Rate 18 Blood Pressure [Ri ght Arm] Pulse Oximetry Oxygen Delivery Me thod
[2023-02-09] MEDS: diphenhydrAMINE 25 MG CAPSULE PO ×2 (09:33→16:39)
[2023-02-09] MEDS: risperiDONE 0.5 MG TABLET PO ×2 (09:33→20:21)
[2023-02-09] MEDS: TRAZODONE HCL 50 MG TABLET 25 MG PO ×2 (15:34→20:20)
--- NOTE | 2023-02-09 15:41 | PC.NURSE ---
Nursing Care Hours: [id number] Pt this shift alert and cooperative. Disoriented to place and time. Eating and drinking without issue. Voiding on toilet. Transfers with EZ stand, tolerates well as long as staff talk through each step. No c/o pain. C/o of itching all over, observed intense scratching over abdomen and legs. No rash or redness observed, scant abrasions noted but no bleeding. Lotion applied frequently without relief. Benadryl ordered and given, treatment effective. 1:1 with PHILLIP most of shift. Was able to tolerate being alone in room for about an hour during lunch, otherwise will yell out frantically for help. Tongue sitting towards left of mouth in pt talking causing slurred speech. Smile and extremity strength equal. HTN in morning. During reading, pt getting agitated with the squeezing of the cuff.
[2023-02-09 19:00] VITALS: BP 190/80; PULSE 79; RESP 18; TEMP 36.4; O2SAT 95
[2023-02-09 23:00] VITALS: PULSE 79; RESP 18
--- NOTE | 2023-02-09 23:01 | PC.NURSE ---
Shift note: Pt continue to be confuse, yelling and calling for help occasionally. 1:1 PHILLIP care PRN today which is improvement from previous day. Pt fight Bp cuff when during Bp measurement.Transfer with Ez stand with A2 to BR. complained of itching and Benadryl was given at 1720.
[2023-02-09 23:30] VITALS: RESP 18
[2023-02-10] MEDS: OXYCODONE 5 MG TABLET 2.5 MG PO (02:46)
[2023-02-10 03:00] VITALS: RESP 16
[2023-02-10] MEDS: diphenhydrAMINE 25 MG CAPSULE PO ×3 (03:00→20:07)
--- NOTE | 2023-02-10 06:37 | PC.NURSE ---
07: EZ stand. Up to bathroom frequently when awake. [place]. Needs frequent redirection with tasks, very forgetful. c/o itchiness, scratch pearl noted on lower back, lotion applied & Benadryl given. States ?ow? when standing, prn oxy given.
[2023-02-10] MEDS: LEVOTHYROXINE 112 MCG TABLET PO (07:32)
[2023-02-10] MEDS: OMEPRAZOLE 20 MG CAPSULE DR PO (07:32)
[2023-02-10 08:22] VITALS: BP 140/78; PULSE 74; RESP 18; TEMP 36.6; O2SAT 97
[2023-02-10 09:52] LABS: Free T4 Free Thyroxine* 0.98 ng/dL (0.70-1.85)
[2023-02-10] MEDS: ACETAMINOPHEN 500 MG TABLET 1000 MG PO ×2 (10:03→16:32)
[2023-02-10] MEDS: DOCUSATE SODIUM 100 MG CAPSULE PO (10:04)
[2023-02-10] MEDS: PSYLLIUM HUSK (WITH SUGAR) 12 GM PACKET PO (10:04)
[2023-02-10] MEDS: risperiDONE 0.5 MG TABLET PO ×2 (10:05→20:06)
[2023-02-10] MEDS: EMOLLIENT BASE CREAM 5 APPLIC TOPICAL ×3 (13:06→20:08)
[2023-02-10] MEDS: risperiDONE 0.5 MG TABLET 0.25 MG PO (13:07)
--- NOTE | 2023-02-10 13:21 | PM.IMPN1 ---
Progress Note: A&P Assessment and plan (1) Dementia: Problem details: - intermittent agitation and frustration when alone, came to the hospital on Risperdone for this and possible hallucinations, could likely be tapered as an outpatient when in a stable setting - reviewed case with Dipak Ojeda DNP ([facility]) on 02/07: no new med recommendations at this time, continue to support activities Status: Acute (2) Knee pain, right: Problem details: - diffuse bilateral lower extremity pain, appreciate input from therapies and Ortho - reassuring imaging, no lateralizing findings on exam Status: Acute (3) Hypothyroidism: Problem details: - TSH of 14 on 02/07 - Synthroid increased from 100mcg to 112 on 02/08 -02/09; will check FT4 to make sure patient doesn't have subclinical hypothyroidism Status: Acute (4) Lymphedema: Problem details: - stable Status: Acute (5) Anemia: Problem details: - normocytic, chronic: Hgb 07/09 was 8.9, Hgb in 05/08 was 10.3, Hgb in September of 2015 was 9.4 Status: Acute Subjective Date Seen: 02/10/23 Interval history: Daily Progress Note - Hospital Medicine Day #:6 CC: Dementia, severe. Progressive left knee osteoarthritis. Has surpassed care available at her memory assisted living facility. Awaiting placement. OVERNIGHT UPDATES FROM STAFF & MED, LAB, IMAGING UPDATES No new issues. Patient continues to be confused and calls out frequently. Reorients easily. Complaining of itchy skin. Still has trouble standing on her own, easy stand her sling at this point. Long discussion with orthopedics at the end of last week. They did not feel a joint injection was indicated. Objective: Vitals: Mildly hypertensive. Not hypoxic. Eating well. see above Lungs: Clear. Cardiac: S1S2. Disposition/Potential discharge - Likely to [facility] to [facility] Today I spent 50minutes seeing the patient, reviewing Expanse and EPIC notes/diagnostics, discussing the care plan with our care time that includes social work, PT/OT, pharmacy, RT, retirement and documenting my impressions and plan in the medical record. Exam Const: Vital Signs, click to edit/add: Vital Signs - 24 hr 02/09/23 19:00 02/09/23 23:00 02/09/23 23:30 Temperature 97.5 F L Pulse Rate [Right Pulse Oximeter] 79 79 Respiratory Rate 18 18 18 Blood Pressure [Ri ght Arm] 190/80 H Pulse Oximetry 95 Oxygen Delivery Me thod Room Air 02/10/23 03:00 02/10/23 08:22 Temperature 97.8 F Pulse Rate [Right Pulse Oximeter] 74 Respiratory Rate 16 18 Blood Pressure [Ri ght Arm] 140/78 H Pulse Oximetry 97 Oxygen Delivery Me thod Room Air Labs Labs: Laboratory Results - last 24 hr 02/10/23 07:07 TSH 18.500 H Free T4 0.98
--- NOTE | 2023-02-10 13:51 | P.DS_ITS ---
DS: Providers Provider Date Seen: 02/10/23 Date of admission: 02/05/23 14:54 Primary care physician: Not a Local Provider Admitting Clinician: Rocío Mendez MD Consults: 02/05/23 16:36 Consult to Physical Therapy [CONS] Routine Comment: Reason(s) for PT Consult:: Weakness Any Restrictions?:: No Restrictions 02/06/23 Consult to Occupational Therapy [CONS] Routine Comment: Reason(s) for OT Consult:: Evaluate and Treat Any Restrictions?:: No Restrictions Attending Physician on discharge: [facility] Date of Discharge: 02/10/23 DS: Diagnosis Discharge Diagnosis (1) Dementia: Status: Acute Problem details: - intermittent agitation and frustration when alone, came to the hospital on Risperdone for this and possible hallucinations, could likely be tapered as an outpatient when in a stable setting - reviewed case with Dipak Ojeda DNP ([facility]) on 02/07: no new med recommendations at this time, continue to support activities (2) Knee pain, right: Status: Acute Problem details: - diffuse bilateral lower extremity pain, appreciate input from therapies and Ortho - reassuring imaging, no lateralizing findings on exam (3) Hypothyroidism: Status: Acute Problem details: - TSH of 14 on 02/07 - Synthroid increased from 100mcg to 112 on 02/08 -02/09; will check FT4 to make sure patient doesn't have subclinical hypothyroidism (4) Lymphedema: Status: Acute Problem details: - stable (5) Anemia: Status: Acute Problem details: - normocytic, chronic: Hgb 07/09 was 8.9, Hgb in 05/08 was 10.3, Hgb in September of 2015 was 9.4 (6) Pruritus: Status: Acute Problem details: -likely more behavioral than dermatologic -topical emollients and triamcinolone p.r.n. -Benadryl or Atarax has been effective as well DS: Summary Hospital Course Hospital Course: HOSPITALIST DISCHARGE SUMMARY ATTENDING PHYSICIAN: Greta Rich MD FINAL DIAGNOSIS: Dementia, severe Chronic pain HOSPITAL FOLLOWUP ISSUES: 1. Continued surveillance for management of chronic pain 2. Continued surveillance and active management of dementia REFERRALS WHILE ADMITTED: PT, OT, social work REFERRALS AFTER DISCHARGE: Memory care, long term BRIEF HOSPITAL COURSE: Teresa was admitted for worsening knee pain, inability to remain 1 assist in her assisted living memory care. She has longstanding dementia which is slowly and progressively getting worse. However, inexplicably, she started to complain of acute knee pain. X-rays, exam, labs were all reassuring. Ortho evaluated. We felt like this was more behavioral than organic knee pain. She can be distracted from the pain. She also complained of pruritus. Again without this was more behavior 0. She called out frequently for comfort. She would call out for help but then when somebody was bedside she was calm. We all felt like this was more of an activated dementia than a musculoskeletal primary problem. SUBSTANTIVE NOTATIONS ON IMAGING, LAB, MICROBIOLOGY/PATHOLOGY STUDIES: See attached record DISCHARGE MEDICATIONS: See Reconciled list - SIGNIFICANT CHANGES: We added topical emollients and p.r.n. Benadryl for her itching. We added a p.r.n. dose of respirate all for her activated agitation. REVIEW OF SYSTEMS No new chest pain or dyspnea Pain controlled No voiding difficulties Tolerating diet challenge PHYSICAL EXAM: CONSTITUTIONAL: Calm when someone is in the room. Agitated when alone. VITAL SIGNS: see record. HEENT: Normocephalic, atraumatic. PERRL, EOMI, conjunctivae pink, no scleral icterus. Ears and nose externally normal. Pharynx normal. NECK: No JVD. No carotid bruit, no thyromegaly, no adenopathy. CHEST: Clear to auscultation bilaterally. HEART: S1 and S2 normal. Edema ABDOMEN: Soft, nontender. Normal bowel sounds. MUSCULOSKELETAL: No gross joint deformity or swelling. NEURO: Cranial nerves intact. Grossly intact. No asymmetric findings. SKIN: No rashes, petechiae, concerning changes PSYCHIATRIC: Mood euthymic. DISPOSITION: senior care/memory care Time spent on discharge 37 minutes. Status at Discharge Functional status at discharge: wheelchair bound Overall status at discharge: patient is not back to baseline Time Spent with Patient Time attestation: Total time spent providing and/or coordinating discharge services: Time spent: Greater than 30 minutes Exam Const: Vital Signs, click to edit/add: Vital Signs - 24 hr 02/09/23 19:00 02/09/23 23:00 02/09/23 23:30 Temperature 97.5 F L Pulse Rate [Right Pulse Oximeter] 79 79 Respiratory Rate 18 18 18 Blood Pressure [Ri ght Arm] 190/80 H Pulse Oximetry 95 Oxygen Delivery Me thod Room Air 02/10/23 03:00 02/10/23 08:22 Temperature 97.8 F Pulse Rate [Right Pulse Oximeter] 74 Respiratory Rate 16 18 Blood Pressure [Ri ght Arm] 140/78 H Pulse Oximetry 97 Oxygen Delivery Me thod Room Air DS: Data Data Completed and Pending Labs on day of discharge: Labs from last 24 hours 02/10/23 07:07 TSH 18.500 H Free T4 0.98 Discharge Plan Discharge Disposition: [facility] Date of Admission: 02/05/23 14:54 Attending Provider on Discharge: Greta Rich Primary Care Provider: Provider,Not a Local Condition: Stable Discharge Medications: New triamcinolone acetonide 0.1 % Cream 1 applic topical TID Qty: 30 0RF diphenhydramine HCl 25 mg Capsule 25 mg PO Q6H PRNQty: 30 0RF risperidone 0.5 mg Tablet 0.25 mg PO DAILY PRN (Reason: Agitation) Qty: 20 0RF emollient [Vanicream] Cream 5 applic topical TID Qty: 500 0RF Continued acetaminophen 500 mg tablet 1,000 mg PO TID Aquaphor Baby Healing 41 % ointment 1 applic topical BID calcium polycarbophil [Fiber-Lax] 625 mg tablet 1,250 mg PO DAILY trazodone 50 mg tablet 25 mg PO BID@16,20 levothyroxine 100 mcg tablet 100 mcg PO DAILY docusate sodium 100 mg capsule 100 mg PO DAILY omeprazole 20 mg capsule,delayed release(DR/EC) 20 mg PO DAILY risperidone 0.5 mg tablet 0.5 mg PO BID escitalopram oxalate 10 mg tablet 10 mg PO DAILY@20 diclofenac sodium 1 % gel 4 g topical 3XD Anti-Itch (menthol-camphor) 0.5-0.5 % lotion 1 applic topical BID cholecalciferol (vitamin D3) [D3-2000] 50 mcg (2,000 unit) capsule 50 mcg PO DAILY sennosides [senna] 8.6 mg tablet 8.6 mg PO BID PRN saliva stimulant comb. no.3 [Biotene Moisturizing Mouth] 1 spray mucous membrane QID PRN Discontinued oxycodone 5 mg tablet 2.5 mg PO Q6H PRN (Reason: moderate pain) Discharge Orders: Discharge Order (Routine); Ordered 02/10/23 Ordered By: Greta Rich Additional Instructions: . Discharge Diet: Regular Follow Up Appointments: Provider,Not a Local [Primary Care Provider] - Forms: [facility] Info Instructions Admit to: SNF Discharge Potential: Fair Length of Stay: 30-90 days Can use facility standing orders?: Yes Code Status: DNR/DNI Rehab Potential: Fair Therapy: Physical Therapy and Occupational Therapy Therapy Orders: Evaluate and Treat and Gait Training Oxygen: No Urinary Catheter: No Orders are good >30 days: Yes Signature: Zoë De León MD
[2023-02-10 15:00] VITALS: PULSE 74; RESP 18
[2023-02-10] MEDS: TRIAMCINOLONE ACETONIDE CREAM 0.1 % 1 APPLIC TOPICAL ×2 (16:31→20:08)
[2023-02-10] MEDS: TRAZODONE HCL 50 MG TABLET 25 MG PO ×2 (16:31→20:06)
[2023-02-10 19:00] VITALS: BP 166/60; PULSE 66; RESP 16; TEMP 36.4; O2SAT 97
--- NOTE | 2023-02-10 19:57 | PC.NURSE ---
shift note: pt anxious and hollering out throughout the day. Pt Hollering help me. Pt redirected with activies and 1:1 company during the day. Pt scratching at times and expresses increased restlessness and anxiety. pt states Scratch me! I itch. Pt asked where itching the most pt states I don't know. Pt's back and buttocks with multiple scratch pearl. Dr. Botello notified and orders for vanicream and Triamolone cream to be applied. Pt medicated with PRN benadryl and PRN Risperadone for anxiety/itching. Pt using EZ lift for transfers. pt denies Rt knee pain. Pt had small soft BM this afternoon. Pt had to be assisted with passing initial stool.
[2023-02-10 20:10] VITALS: PULSE 66; RESP 16
[2023-02-10 23:30] VITALS: RESP 18
[2023-02-11 03:00] VITALS: RESP 18
--- NOTE | 2023-02-11 05:42 | PC.NURSE ---
END OF SHIFT NOTE: PT IS DEMENTED REQUIRING FREQUENT REDIRECTING. PT VERY ANXIOUS AND WILL CALL OUT FOR HELP WHEN LEFT IN ROOM ALONE. DENIES CP, SOB, N/V. D/T INCREASED WEAKNESS PT HAS BEEN TRANSFERRED VIA EZ STAND. VSS ON RA; AFEBRILE. PT C/O MID BACK PAIN 07/27. PT ALSO C/O BEING ITCHY AND IS SCRATCHING AT SCABS ON ARMS. PT WAS EDUCATED ON INFECTION CONTROL, NOT TO PICK OFF SCABS. BED ALARM ON AND CALL LIGHT WITHIN PT?S REACH.?
[2023-02-11] MEDS: LEVOTHYROXINE 112 MCG TABLET PO (06:17)
[2023-02-11] MEDS: OXYCODONE 5 MG TABLET 2.5 MG PO (06:37)
[2023-02-11 07:00] VITALS: BP 173/80; PULSE 110; RESP 20; TEMP 35.9; O2SAT 98
[2023-02-11] MEDS: PSYLLIUM HUSK (WITH SUGAR) 12 GM PACKET PO (08:33)
[2023-02-11] MEDS: OMEPRAZOLE 20 MG CAPSULE DR PO (08:34)
[2023-02-11] MEDS: ACETAMINOPHEN 500 MG TABLET 1000 MG PO ×3 (08:35→20:19)
[2023-02-11] MEDS: DOCUSATE SODIUM 100 MG CAPSULE PO (08:36)
[2023-02-11] MEDS: EMOLLIENT BASE CREAM 5 APPLIC TOPICAL ×3 (08:36→20:23)
[2023-02-11] MEDS: TRIAMCINOLONE ACETONIDE CREAM 0.1 % 1 APPLIC TOPICAL ×3 (08:36→20:23)
--- NOTE | 2023-02-11 09:52 | PC.SOCIAL ---
Discharge plan: Faxed updated notes to [facility] unit for review prior to admit there today. Received call back from [facility], stating they can not accept pt due to isolation needs. There is no private room available. recording studio setup worker to follow up as needed.
[2023-02-11] MEDS: risperiDONE 0.5 MG TABLET PO ×2 (09:59→20:22)
--- NOTE | 2023-02-11 14:41 | PM.IMPN1 ---
Progress Note: A&P Assessment and plan (1) Dementia: Problem details: - intermittent agitation and frustration when alone, came to the hospital on Risperdone for this and possible hallucinations, could likely be tapered as an outpatient when in a stable setting - reviewed case with Dipak Ojeda DNP ([facility]) on 02/07: no new med recommendations at this time, continue to support activities Status: Acute (2) Knee pain, right: Problem details: - diffuse bilateral lower extremity pain, appreciate input from therapies and Ortho - reassuring imaging, no lateralizing findings on exam Status: Acute (3) Hypothyroidism: Problem details: - TSH of 14 on 02/07 - Synthroid increased from 100mcg to 112 on 02/08 -02/09; will check FT4 to make sure patient doesn't have subclinical hypothyroidism Status: Acute (4) Lymphedema: Problem details: - stable Status: Acute (5) Anemia: Problem details: - normocytic, chronic: Hgb 07/09 was 8.9, Hgb in 05/08 was 10.3, Hgb in September of 2015 was 9.4 Status: Acute (6) Pruritus: Problem details: -likely more behavioral than dermatologic -topical emollients and triamcinolone p.r.n. -Benadryl or Atarax has been effective as well Status: Acute Plan 1. Still waiting placement acceptance for her. Metallurgical Lab Technician continues to work diligently at trying to achieve this. A possible lead that we had last week has now officially declined accepting her. Time Spent With Patient Total time spent: 30 min Subjective Time Seen by Provider: 07:30 Date Seen: 02/11/23 Interval history: Daily Progress Note - Hospital Medicine Day #:7 CC: Dementia, severe. Progressive left knee osteoarthritis. Has surpassed care available at her memory assisted living facility. Awaiting placement. No new issues. Patient continues to be confused and calls out frequently. Reorients easily. Still has trouble standing on her own, easy stand her sling at this point. Hospitalists had a discussion with orthopedics at the end of last week, and they did not feel a joint injection was indicated. Exam Narrative: Exam Narrative: Assess patient in the hallway and in her bedroom. Patient requires attention from nursing staff due to her wandering behaviors. When awake she is alert and oriented to self only not to place time or situation. Unable to carry out a meaningful dialogue or discussion. Lungs clear to auscultation. Heart tones with regular rhythm. Abdomen benign with active bowel sounds, soft, nontender. Extremities without edema. No focal motor neurologic deficits. Const: Vital Signs, click to edit/add: Vital Signs - 24 hr 02/10/23 15:00 02/10/23 19:00 02/10/23 20:10 Temperature 97.6 F Pulse Rate [Right Pulse Oximeter] 74 66 66 Respiratory Rate 18 16 16 Blood Pressure [Ri ght Arm] 166/60 H Pulse Oximetry 97 Oxygen Delivery Me thod Room Air 02/10/23 23:30 02/11/23 03:00 02/11/23 07:00 Temperature 96.6 F L Pulse Rate [Right Pulse Oximeter] 110 H Respiratory Rate 18 18 20 Blood Pressure [Ri ght Arm] 173/80 H Pulse Oximetry 98 Oxygen Delivery Me thod 02/11/23 07:00 Temperature Pulse Rate [Right Pulse Oximeter] 110 H Respiratory Rate 20 Blood Pressure [Ri ght Arm] Pulse Oximetry Oxygen Delivery Me thod Documenting provider has reviewed patient's vital signs: yes
[2023-02-11 15:00] VITALS: PULSE 80; RESP 18
[2023-02-11] MEDS: risperiDONE 0.5 MG TABLET 0.25 MG PO (15:03)
[2023-02-11] MEDS: diphenhydrAMINE 25 MG CAPSULE PO (16:50)
[2023-02-11] MEDS: TRAZODONE HCL 50 MG TABLET 25 MG PO ×2 (16:50→20:19)
[2023-02-11 17:48] VITALS: BP 189/79; PULSE 70; RESP 20; TEMP 35.9; O2SAT 97
--- NOTE | 2023-02-11 19:07 | PC.NURSE ---
Patient confused and yelling out when no one present in room. Staff gave 1:1 and offered frequent redirection which was effective. Up with EZ-stand lift for transfers and toileting. Pt scratching arms, lower back, under breasts and adb fold. Vanicream and Triamcinolone cream applied which was effective. PRN Benadryl administered this afternoon which was effective. Scheduled Tylenol administered for chronic pain. Tolerating regular diet well.
[2023-02-12] MEDS: OMEPRAZOLE 20 MG CAPSULE DR PO (05:47)
[2023-02-12] MEDS: LEVOTHYROXINE 112 MCG TABLET PO (05:49)
--- NOTE | 2023-02-12 06:31 | PC.NURSE ---
[id number]: Patient alert to self only and NATIVE. A2 w/EZ stand. Moderate amount of scratches to lower R. back and R. buttock. Patient also noted scratching on lower abdomen. Patient shouts out help me often but mostly cooperative with nursing cares. Aside from frequent trips to the BR patient did not have any episodes of extreme restlessness during shift.
[2023-02-12 07:00] VITALS: BP 150/72; PULSE 67; RESP 20; TEMP 36.6; O2SAT 98
[2023-02-12] MEDS: EMOLLIENT BASE CREAM 5 APPLIC TOPICAL ×3 (09:00→21:19)
[2023-02-12] MEDS: risperiDONE 0.5 MG TABLET PO ×2 (09:05→21:17)
[2023-02-12] MEDS: DOCUSATE SODIUM 100 MG CAPSULE PO (09:05)
[2023-02-12] MEDS: TRIAMCINOLONE ACETONIDE CREAM 0.1 % 1 APPLIC TOPICAL ×3 (09:05→21:19)
[2023-02-12] MEDS: PSYLLIUM HUSK (WITH SUGAR) 12 GM PACKET PO (09:05)
[2023-02-12] MEDS: ACETAMINOPHEN 500 MG TABLET 1000 MG PO ×3 (09:05→21:17)
--- NOTE | 2023-02-12 09:41 | NUTR.NU ---
RDN with nutrition screen for LOS. Patient admitted with dementia and right knee pain. Patient needs placement at a memory care custodial per IDT. Per machinist/machine builder, patient has been consuming 75-100% of most meals since admission. Weight has been fairly stable with current weight at 210lbs 02/12/23 and admission weight of 212lbs on 02/05/23. RDN questions accuracy of weights 176lbs 02/10/23 and 185lbs 02/09/23, different scales used. BMI obese at 32.1kg/m2. No nutritional concerns or interventions needed at this time. RDN will continue to follow PRN.
[2023-02-12] MEDS: diphenhydrAMINE 25 MG CAPSULE PO (09:45)
--- NOTE | 2023-02-12 14:17 | PM.IMPN1 ---
Progress Note: A&P Assessment and plan (1) Dementia: Problem details: - intermittent agitation and frustration when alone, came to the hospital on Risperdone for this and possible hallucinations, could likely be tapered as an outpatient when in a stable setting - reviewed case with Dipak Ojeda DNP ([facility]) on 02/07: no new med recommendations at this time, continue to support activities Status: Acute (2) Knee pain, right: Problem details: - diffuse bilateral lower extremity pain, appreciate input from therapies and Ortho - reassuring imaging, no lateralizing findings on exam Status: Acute (3) Hypothyroidism: Problem details: - TSH of 14 on 02/07 - Synthroid increased from 100mcg to 112 on 02/08 -02/09; will check FT4 to make sure patient doesn't have subclinical hypothyroidism Status: Acute (4) Lymphedema: Problem details: - stable Status: Acute (5) Anemia: Problem details: - normocytic, chronic: Hgb 07/09 was 8.9, Hgb in 05/08 was 10.3, Hgb in September of 2015 was 9.4 Status: Acute (6) Pruritus: Problem details: -likely more behavioral than dermatologic -topical emollients and triamcinolone p.r.n. -Benadryl or Atarax has been effective as well Status: Acute (7) Asymptomatic bacteriuria: Problem details: 02/06/2023: E coli, multi-drug resistance, with ESBL. Status: Acute Assessment and Plan: Recheck urine culture today. Plan 1. Continue to await [facility] longterm bed availability. 2. Continue with current supportive efforts 3. Recheck urine culture today. It appears patient is colonized with multi-drug resistant E coli with ESBL. No indication to treat at this time. Time Spent With Patient Total time spent: 35 minutes Subjective Time Seen by Provider: 08:15 Date Seen: 02/12/23 Interval history: Daily Progress Note - Hospital Medicine Day #:8 CC: Dementia, severe. Progressive left knee osteoarthritis. Has surpassed care available at her memory assisted living facility. Awaiting placement. No new issues. Patient continues to be confused and calls out frequently. Reorients easily. Still has trouble standing on her own, easy stand her sling at this point. Hospitalists previously had a discussion with orthopedics at the end of last week, and they did not feel a joint injection was indicated. Patient denies dysuria, urgency, frequency, hematuria. Exam Narrative: Exam Narrative: Appears comfortable. If left alone and unattended for too long a period of time the patient starts hollering out. When checked upon in this setting and asked if we can get her something she indicates no. She also indicates she is feeling well. Very hard of hearing, chronic, not new. Vision is adequately preserved. Alert and oriented to self only. Lungs clear to auscultation. Heart tones with regular rhythm. Extremities without edema. No focal motor neurologic deficits. Const: Vital Signs, click to edit/add: Vital Signs - 24 hr 02/11/23 15:00 02/11/23 17:48 02/12/23 07:00 Temperature 96.7 F L Pulse Rate [Right Pulse Oximeter] 80 70 67 Respiratory Rate 18 20 20 Blood Pressure [Ri ght Arm] 189/79 H Blood Pressure [ri ght forearm] Pulse Oximetry 97 Oxygen Delivery Me thod Room Air 02/12/23 07:00 Temperature 97.9 F Pulse Rate [Right Pulse Oximeter] 67 Respiratory Rate 20 Blood Pressure [Ri ght Arm] Blood Pressure [ri ght forearm] 150/72 H Pulse Oximetry 98 Oxygen Delivery Me thod Room Air Documenting provider has reviewed patient's vital signs: yes
[2023-02-12 15:00] VITALS: PULSE 67; RESP 18
[2023-02-12] MEDS: TRAZODONE HCL 50 MG TABLET 25 MG PO ×2 (16:57→21:17)
--- NOTE | 2023-02-12 19:59 | PC.NURSE ---
Nursing Care Hours: [id number] Pt this shift alert and oriented to self. Tolerating transfers with EZ stand with freelance copywriter explaining each step during process, reassuring pt that she safe. Pt took a nap after breakfast, and then another nap before lunch. Continent of bowel and bladder. Lg BM this shift. C/o itching even after topical ointments used. Benadryl given PRN. Oral cares done AM and PM, pt washed face and changed gown.
[2023-02-12 21:25] VITALS: BP 168/98; PULSE 72; TEMP 36.3
[2023-02-12 21:32] VITALS: BP 168/98; PULSE 72; RESP 20; TEMP 36.4; O2SAT 95
[2023-02-13] MEDS: LEVOTHYROXINE 112 MCG TABLET PO (05:28)
[2023-02-13] MEDS: OMEPRAZOLE 20 MG CAPSULE DR PO (05:28)
--- NOTE | 2023-02-13 05:42 | PC.NURSE ---
[id number]: Patient [employer] and with dementia. Up hourly to use the BR. A2/EZ stand. Cooperative with cares. Slept on and off during noc calling out for help occasionally.
[2023-02-13 07:41] VITALS: BP 187/96; PULSE 92; RESP 18; TEMP 36.1; O2SAT 96
[2023-02-13] MEDS: PSYLLIUM HUSK (WITH SUGAR) 12 GM PACKET PO (09:20)
[2023-02-13] MEDS: ACETAMINOPHEN 500 MG TABLET 1000 MG PO ×2 (09:20→20:31)
[2023-02-13] MEDS: EMOLLIENT BASE CREAM 5 APPLIC TOPICAL ×2 (09:20→20:33)
[2023-02-13] MEDS: TRIAMCINOLONE ACETONIDE CREAM 0.1 % 1 APPLIC TOPICAL ×2 (09:21→20:33)
[2023-02-13] MEDS: risperiDONE 0.5 MG TABLET PO ×2 (09:21→20:30)
--- NOTE | 2023-02-13 13:51 | PC.SOCIAL ---
Social work: Per MD order for psych placement, checked the availability for geripsych in-pt placement on the [facility] bed availability website. The only facilities that are able to accept a pt with dementia and need for physical assistance is [facility] in [place] and [facility] in [place]. Called these facilities with the following results: 1. [facility] - Called and left message requesting call back regarding bed availability. 2. [facility] - Called and spoke with Elsy. Faxed requested information and awaiting call back with decision on admit. general warehouse worker to follow up as needed.
--- NOTE | 2023-02-13 15:02 | PC.NURSE ---
End of shift- VS on RA, [place], yells out help me as well as you are hurting me. Despite not even touching her. Continued to yell out after we left her room. 1:1 until 1400. She is quiet and appropriate while someone is in there. Pt is sleeping now in bed. Awaiting placement at SNF.
--- NOTE | 2023-02-13 15:22 | P.IMPN_ITS ---
Progress Note: A&P Assessment and plan (1) Dementia: Problem details: - intermittent agitation and frustration when alone, came to the hospital on Risperdone for this and possible hallucinations, could likely be tapered as an outpatient when in a stable setting - reviewed case with Dipak Ojeda DNP ([facility]) on 02/07: no new med recommendations at this time, continue to support activities - unclear if she needs additional psychotropic medications at this time. Status: Acute (2) Knee pain, right: Problem details: - diffuse bilateral lower extremity pain, appreciate input from therapies and Ortho - reassuring imaging, no lateralizing findings on exam Status: Acute (3) Hypothyroidism: Problem details: - TSH of 14 on 02/07 - Synthroid increased from 100mcg to 112 on 02/08 -02/09; will check FT4 to make sure patient doesn't have subclinical hypothyroidism Status: Acute (4) Lymphedema: Problem details: - stable Status: Acute (5) Anemia: Problem details: - normocytic, chronic: Hgb 07/09 was 8.9, Hgb in 05/08 was 10.3, Hgb in September of 2015 was 9.4 Status: Acute (6) Pruritus: Problem details: -likely more behavioral than dermatologic -topical emollients and triamcinolone p.r.n. -Benadryl or Atarax has been effective as well Status: Acute (7) Asymptomatic bacteriuria: Problem details: 02/06/2023: E coli, multi-drug resistance, with ESBL. Status: Acute Plan 1. Continue with efforts to try to achieve placement. 2. In regard to her asymptomatic bacteriuria, even though it is multidrug resistant with ESBL, there is no indication to treat this presently. Awaiting repeat urine culture nevertheless. Time Spent With Patient Total time spent: 30 minutes Subjective Time Seen by Provider: 07:30 Date Seen: 02/13/23 Interval history: Daily Progress Note - Hospital Medicine #:9 CC: Dementia, severe. Progressive left knee osteoarthritis. Has surpassed care available at her memory assisted living facility. Awaiting placement. No new issues. Patient continues to be confused and calls out frequently. Reorients easily. Still has trouble standing on her own, easy stand her sling at this point. Hospitalists previously had a discussion with orthopedics at the end of last week, and they did not feel a joint injection was indicated. Patient continues to deny dysuria, urgency, frequency, hematuria. Urine culture obtained on 02/06/2023 grew out greater than 100,000 colony-forming units per mL of multi-drug resistant E coli with ESBL. Patient was asymptomatic when that was obtained. She continues to be asymptomatic. I obtained a repeat urine culture on 02/12/2023, currently demonstrating Gram- negative rods greater than 100,000 colony-forming units/ml. Id and sensitivity are still pending. Again patient remains asymptomatic with this. Exam Narrative: Exam Narrative: Very remarkably when patient is alone for even a few minutes she begins to call out and holler for help. When 1 of the hospital caregivers is near her such that she can see them and talk with them she no longer hollers out for help and is quite calm. Additionally however, when she needs help, such as with dressing or undressing, she sometimes begins to holler out again. For the most part we are able to read direct her, but she does require a fair amount of support. Without the support she seems to be in distress and uncomfortable. Lungs clear to auscultation. Heart tones with regular rhythm. Abdomen is benign. Const: Vital Signs, click to edit/add: Vital Signs - 24 hr 02/12/23 21:25 02/12/23 21:32 02/13/23 07:41 Temperature 97.4 F L 97.6 F 96.9 F L Pulse Rate [Right Pulse Oximeter] 72 72 92 Respiratory Rate 20 18 Blood Pressure [Ri ght Arm] 187/96 H Blood Pressure [ri ght forearm] 168/98 H 168/98 H Pulse Oximetry 95 96 Oxygen Delivery Me thod Room Air Room Air Documenting provider has reviewed patient's vital signs: yes
--- NOTE | 2023-02-13 16:22 | PC.SOCIAL ---
Discharge planning: Continued to work on usp placement, using the list of contracted prison facilities within 30 miles from the [employer] website. Pt needs a usp bed that is a private room due to isolation needs, is contracted with her insurance and is ble to meet her mempry care needs. Facilities listed were contacted with the noted results: 1. [facility] - no longer contracted. 2. [facility] - Spoke with admissions and faxed information and awaiting decision on admit. 3. [facility] - No memory care available. [facility] - [facility] 6. [facility] - no memory care. 7. [facility] - left message with admitting. awaiting call back. 8. [facility] - spoke with Alirio carvajal, who states there are no beds available until possible the end of next week, but they do not have a secure unit. 9. [facility] - Spoke with admissions - no private rooms. 10. [facility] - left message and awaiting call back. 11. [facility] - left message and awaiting call back. 12. [facility] -[phone] - they have a secure unit with private rooms and are contracted with insurance. Faxed information ([phone]) and awaiting call back with decision on admit. 13. [facility] [place] - [phone] - spoke with admissionsDane, and faxed information ([phone]) awaiting call back with decision on admit. 14. [facility] - left message and awaiting call back. 15. [facility] - no memory care. 16. [facility] - no memory care. 17. [facility] - left message and awaiting call back. 18. [facility] - left message and awaiting call back. body and fender worker to follow up as needed.
[2023-02-13] MEDS: TRAZODONE HCL 50 MG TABLET 25 MG PO ×2 (17:07→20:30)
[2023-02-13 19:35] VITALS: BP 162/70; PULSE 76; RESP 18; TEMP 36.3; O2SAT 96
[2023-02-13 19:40] VITALS: PULSE 76; RESP 18
--- NOTE | 2023-02-13 21:44 | PC.NURSE ---
Teresa has been pleasant and interactive with NA/R sitting in room. Ate well. Has been participating in several activities such as rolling up a ball of yarn and coloring. Asks repetitive questions and calls out, but has been fairly easy to redirect with staff presence. T&RQ2H. Took HS meds well.
[2023-02-13] MEDS: diphenhydrAMINE 25 MG CAPSULE PO (22:02)
[2023-02-14 01:28] VITALS: PULSE 76; RESP 18
--- NOTE | 2023-02-14 06:09 | PC.NURSE ---
Pt alert and oriented to self only. Pt continues to need reorientation, pt does better when tasks are explain step by step as they are done. Pt was up x4 to the bathroom with EZ stand, and had one medium continent bowel movement. Pt slept intermittently throughout night. Pt did not require 1:1 overnight. Pt usually falls back to sleep after using the bathroom.
[2023-02-14] MEDS: LEVOTHYROXINE 112 MCG TABLET PO (06:25)
[2023-02-14 08:09] VITALS: BP 174/94; PULSE 91; RESP 20; TEMP 36.1; O2SAT 98
[2023-02-14] MEDS: risperiDONE 0.5 MG TABLET PO ×2 (08:53→20:29)
[2023-02-14] MEDS: OMEPRAZOLE 20 MG CAPSULE DR PO (08:53)
[2023-02-14] MEDS: ACETAMINOPHEN 500 MG TABLET 1000 MG PO ×3 (08:53→20:28)
[2023-02-14] MEDS: TRIAMCINOLONE ACETONIDE CREAM 0.1 % 1 APPLIC TOPICAL ×3 (10:12→20:35)
[2023-02-14] MEDS: EMOLLIENT BASE CREAM 5 APPLIC TOPICAL ×3 (10:12→20:33)
--- NOTE | 2023-02-14 11:21 | PC.SOCIAL ---
Discharge planning: Emailed son, Thong, with an update of facilities contacted and list of insurance contracted facilities within 30 miles of [place]. Informed him social director is looking for placement based on closest facility to [place] but requesting he contact social work with areas or specific facilities he wants contacted. Continued to look for senior living placement for pt with the following results. Communicated with the facilities contacted yesterday: 1. [facility] [phone] and left message requesting call back with decision on admit. Fax was sent yesterday. 2. [facility] - [phone] - secure emailed referral information and awaiting call back with decision on admit. 3. [facility] - currently does not have availability but may have an appropriate memory care bed opening next week. Call back on Saturday for update on bed availability if needed. 4.. [facility] - [phone] - may have an appropriate bed opening up at the end of next week. Call on Saturday for evaluation if still needed. Called the following new facilities from the [facility] Contracted list of assisted facilities with the listed results: 1. [facility] - left message. 2. [facility] [place] - left message. 3. [facility] - Spoke with admissions - no private room but can call back next week if still looking for facility. 4. [facility] - left message. 5. [facility] ([facility]) - left message. 6. [facility] [place] - left message. 7. [facility] assisted - left message. 8. [facility] - No private room on memory care unit. 9. [facility] - left message. 10. [facility]- [phone], Spoke with Kavita and faxed information for evaluation for admit to [phone]. Social work to follow up as needed.
--- NOTE | 2023-02-14 11:23 | P.IMPN_ITS ---
Progress Note: A&P Assessment and plan (1) Dementia: Problem details: - intermittent agitation and frustration when alone, came to the hospital on Risperdone for this and possible hallucinations, could likely be tapered as an outpatient when in a stable setting - reviewed case with Dipak Ojeda DNP ([facility]) on 02/07: no new med recommendations at this time, continue to support activities - does not appear to require additional psychotropic medications at this time. Status: Acute (2) Knee pain, right: Problem details: - diffuse bilateral lower extremity pain, appreciate input from therapies and Ortho - reassuring imaging, no lateralizing findings on exam Status: Acute (3) Hypothyroidism: Problem details: - TSH of 14 on 02/07 - Synthroid increased from 100mcg to 112 on 02/08 -02/09; will check FT4 to make sure patient doesn't have subclinical hypothyroidism Status: Acute (4) Lymphedema: Problem details: - stable Status: Acute (5) Anemia: Problem details: - normocytic, chronic: Hgb 07/09 was 8.9, Hgb in 05/08 was 10.3, Hgb in September of 2015 was 9.4 Status: Acute (6) Pruritus: Problem details: -likely more behavioral than dermatologic -topical emollients and triamcinolone p.r.n. -Benadryl or Atarax has been effective as well Status: Acute (7) Asymptomatic bacteriuria: Problem details: 02/06/2023 and 02/12/2023: E coli, multi-drug resistance, with ESBL. No indication for treatment given she is asymptomatic. Status: Acute Plan 1. Continue with supportive efforts 2. Recheck CBC tomorrow 3. Continue to try to achieve appropriate placement. Time Spent With Patient Total time spent: 25 minutes Subjective Time Seen by Provider: 09:00 Date Seen: 02/14/23 Interval history: Daily Progress Note - Hospital Medicine #:10 CC: Dementia, severe. Progressive left knee osteoarthritis. Has surpassed care available at her memory assisted living facility. Awaiting placement. No new issues. Patient continues to be confused and calls out frequently. Reorients easily. Still has trouble standing on her own. Hospitalists previously had a discussion with orthopedics at the end of last week, and they did not feel a joint injection was indicated. Currently sits in chair with feet in dependent position much of the day. Patient continues to deny dysuria, urgency, frequency, hematuria. Urine culture obtained on 02/06/2023 grew out greater than 100,000 colony-forming units per mL of multi-drug resistant E coli with ESBL. Patient was asymptomatic when that was obtained. She continues to be asymptomatic. I obtained a repeat urine culture on 02/12/2023, currently demonstrating Gram- negative rods greater than 100,000 colony-forming units/ml. Id and sensitivity are still pending. Again patient remains asymptomatic with this. Exam Narrative: Exam Narrative: Examine her in her hospital room. She is anxious when known is in her room. When there is someone in her room that she can see and talk with she is not as anxious. Oriented to self only. Lungs clear to auscultation. Heart tones with regular rhythm. Abdomen with active bowel sounds, soft. Lower extremities with lymphedema. Eats independently active food prep and setup. Const: Vital Signs, click to edit/add: Vital Signs - 24 hr 02/13/23 19:35 02/13/23 19:40 02/14/23 01:28 Temperature 97.4 F L Pulse Rate [Right Pulse Oximeter] 76 76 76 Respiratory Rate 18 18 18 Blood Pressure [Ri ght Arm] 162/70 H Pulse Oximetry 96 Oxygen Delivery Me thod Room Air 02/14/23 08:09 Temperature 97.0 F L Pulse Rate [Right Pulse Oximeter] 91 Respiratory Rate 20 Blood Pressure [Ri ght Arm] 174/94 H Pulse Oximetry 98 Oxygen Delivery Me thod Room Air Documenting provider has reviewed patient's vital signs: yes
[2023-02-14 15:00] VITALS: PULSE 83; RESP 18
[2023-02-14] MEDS: TRAZODONE HCL 50 MG TABLET 25 MG PO ×2 (16:23→20:27)
--- NOTE | 2023-02-14 16:39 | PC.SOCIAL ---
Discharge planning: Spoke with son, Thong, who is aware of challenges with finding placement and agrees with plan to keep contacting fpc facilities in order of location closest to [place]. He has received the list of contracted facilities within 30 miles of [place] that was emailed to him. Son is aware he can request social group worker contact specific facilities or locations but has no suggestions at this time. Received call from [facility] stating that information can be faxed to them at [phone] but that they don't anticipate having and available beds until sometime next week. flume worker faxed referral to this facility and awaiting decision on admit. flume worker to follow up as needed regarding placement.
[2023-02-14 19:00] VITALS: BP 185/70; PULSE 83; RESP 18; TEMP 36.2; O2SAT 97
[2023-02-14] MEDS: HYDRALAZINE 10 MG TABLET PO (20:28)
--- NOTE | 2023-02-14 22:44 | PC.NURSE ---
End of Shift: Patient alert to self. Pleasant and cooperative with PHILLIP sitting in room. Denies pain. Afebrile. Tolerating regular diet with no nausea. Up to chair and bathroom with 2 assist and EZ stand.
[2023-02-14 23:00] VITALS: RESP 20
[2023-02-15] MEDS: risperiDONE 0.5 MG TABLET 0.25 MG PO (02:59)
[2023-02-15] MEDS: LEVOTHYROXINE 112 MCG TABLET PO (06:13)
[2023-02-15 06:41] LABS: Hematocrit 32.7 % (33.0-51.0); Hemoglobin* 9.8 gm/dL (12.0-16.0); Mean Corpuscular HGB Conc 30 gm/dL (32-36); Mean Corpuscular Hemoglobin 27 pg (26-34); Mean Corpuscular Volume 90 fL (80-100); Platelet Count* 111 K/uL (140-440); Red Blood Count 3.64 m/uL (4.00-5.20); White Blood Count* 4.81 K/uL (4.50-11.00)
[2023-02-15 06:59] LABS: Chloride* 101 mmol/L (96-114); Potassium* 4.7 mmol/L (3.6-5.1); Sodium* 135 mmol/L (135-149)
--- NOTE | 2023-02-15 06:59 | PC.NURSE ---
END OF SHIFT NOTE: PT WITH DEMENTIA. 1:1 WITH PHILLIP. PT CONTINUOUSLY CALLING OUT FOR HELP.?DENIES CP, SOB, N/V. PT AMBULATES WITH EZ STAND. RA. BED ALARM ON AND CALL LIGHT WITHIN PT?S REACH.
[2023-02-15 07:02] LABS: Anion Gap 10 mEq/L (7-15); Blood Urea Nitrogen* 24 mg/dL (7-30); Carbon Dioxide* 24 mmol/L (20-32); Creatinine* 0.6 mg/dL (0.5-1.5); Est. Creatinine Clearance* 40.74; Estimated Glomerular Filt Rate 87 ml/min
[2023-02-15 07:03] LABS: Calcium* 8.9 mg/dL (8.4-10.6); Glucose* 117 mg/dL (60-115)
[2023-02-15 07:15] LABS: Slide Review Reflex Yes
[2023-02-15 07:16] LABS: Slide Review Acceptable Review (Acceptable)
[2023-02-15] MEDS: ACETAMINOPHEN 500 MG TABLET 1000 MG PO ×3 (09:06→20:08)
[2023-02-15] MEDS: OMEPRAZOLE 20 MG CAPSULE DR PO (09:06)
[2023-02-15] MEDS: PSYLLIUM HUSK (WITH SUGAR) 12 GM PACKET PO (09:07)
[2023-02-15] MEDS: EMOLLIENT BASE CREAM 5 APPLIC TOPICAL ×3 (09:07→20:18)
[2023-02-15] MEDS: TRIAMCINOLONE ACETONIDE CREAM 0.1 % 1 APPLIC TOPICAL ×3 (09:07→20:10)
[2023-02-15] MEDS: risperiDONE 0.5 MG TABLET PO (09:12)
[2023-02-15 09:18] VITALS: BP 186/116; PULSE 90; RESP 16; TEMP 36.8; O2SAT 96
--- NOTE | 2023-02-15 13:49 | PC.SOCIAL ---
Discharge Planning:Faxed packet to [facility]. Waiting on final decision for possible admission on . 02/20/2023. Social work to follow up as needed.
--- NOTE | 2023-02-15 14:52 | PM.IMPN1 ---
Progress Note: A&P Assessment and plan (1) Dementia: Problem details: - intermittent agitation and frustration when alone, came to the hospital on Risperdone for this and possible hallucinations, could likely be tapered as an outpatient when in a stable setting - reviewed case with Dipak Ojeda DNP ([facility]) on 02/07: no new med recommendations at this time, continue to support activities - does not appear to require additional psychotropic medications at this time. Status: Acute (2) Knee pain, right: Problem details: - diffuse bilateral lower extremity pain, appreciate input from therapies and Ortho - reassuring imaging, no lateralizing findings on exam Status: Acute (3) Hypothyroidism: Problem details: - TSH of 14 on 02/07 - Synthroid increased from 100mcg to 112 on 02/08 -02/09; will check FT4 to make sure patient doesn't have subclinical hypothyroidism Status: Acute (4) Lymphedema: Problem details: - stable - could potentially benefit from compression wraps or stockings, but holding off given her behaviors at this time. Status: Acute (5) Anemia: Problem details: - normocytic, chronic: Hgb 07/09 was 8.9, Hgb in 05/08 was 10.3, Hgb in September of 2015 was 9.4 Status: Acute (6) Pruritus: Problem details: -likely more behavioral than dermatologic -topical emollients and triamcinolone p.r.n. -Benadryl or Atarax has been effective as well Status: Acute (7) Asymptomatic bacteriuria: Problem details: 02/06/2023 and 02/12/2023: E coli, multi-drug resistance, with ESBL. No indication for treatment given she is asymptomatic. Status: Acute Plan 1. I call and discuss the patient's condition and situation with her son, Thong Chavis, . Updated him on her condition as well as current plans for placement. I answers questions to satisfaction. He requests that we continue. Time Spent With Patient Total time spent: 35 minute Subjective Time Seen by Provider: 09:00 Date Seen: 02/15/23 Interval history: Daily Progress Note - Hospital Medicine #:11 CC: Dementia, severe. Progressive left knee osteoarthritis. Has surpassed care available at her memory assisted living facility. Awaiting placement. No new issues. Patient continues to be confused and calls out frequently. Does well with personal interaction. Very hard of hearing. Reorients briefly easily. Still has trouble standing on her own. Hospitalists previously had a discussion with orthopedics at the end of last week, and they did not feel a joint injection was indicated. Currently sits in chair with feet in dependent position much of the day. Patient continues to deny dysuria, urgency, frequency, hematuria. Urine culture obtained on 02/06/2023 grew out greater than 100,000 colony-forming units per mL of multi-drug resistant E coli with ESBL. Patient was asymptomatic when that was obtained. She continues to be asymptomatic. I obtained a repeat urine culture on 02/12/2023, which demonstrates exactly the same multidrug resistant E coli with ESBL. Patient continues to be asymptomatic therefore not being treated. Exam Narrative: Exam Narrative: I examine her in her hospital room and when she sits in her chair at the entrance of her room face in the hallway. When left alone she becomes anxious and hollers out. As soon as we entered the room and interact with her, her anxiety resolves. Does well with crafts and coloring. Alert and oriented to self only. Not new. Lungs are clear to auscultation. Heart tones with regular rhythm. Abdomen with active bowel sounds, soft, nontender. Bilateral lower extremity lymphedema, not new. Needs assist with transfers. Const: Vital Signs, click to edit/add: Vital Signs - 24 hr 02/14/23 15:00 02/14/23 19:00 02/14/23 23:00 Temperature 97.1 F L Pulse Rate [Right Pulse Oximeter] 83 83 Respiratory Rate 18 18 20 Blood Pressure [Ri ght Arm] 185/70 H Pulse Oximetry 97 Oxygen Delivery Me thod Room Air 02/15/23 09:18 Temperature 98.2 F Pulse Rate [Right Pulse Oximeter] 90 Respiratory Rate 16 Blood Pressure [Ri ght Arm] 186/116 H Pulse Oximetry 96 Oxygen Delivery Me thod Room Air Documenting provider has reviewed patient's vital signs: yes Labs Labs: Laboratory Results - last 24 hr 02/15/23 06:17 WBC 4.81 RBC 3.64 L Hgb 9.8 L Hct 32.7 L MCV 90 MCH 27 MCHC 30 L Plt Count 111 L Diff Slide Review Acceptable Review Sodium 135 Potassium 4.7 Chloride 101 Carbon Dioxide 24 Anion Gap 10 BUN 24 Creatinine 0.6 Estimated Creat Clear 40.74 Estimated GFR 87 Glucose 117 H Calcium 8.9
[2023-02-15] MEDS: diphenhydrAMINE 25 MG CAPSULE PO (15:29)
[2023-02-15] MEDS: TRAZODONE HCL 50 MG TABLET 25 MG PO ×2 (15:29→20:09)
--- NOTE | 2023-02-15 18:18 | PC.NURSE ---
End of shift- VS on RA. Orientated to self only. Up w/ A1-2 with EZ stand. She will still yell out help me when you get her up. Voiding well, 2 BM's today. 1:1 sitter throughout the day, has appropriate behavior when someone is in there with her. No other concerns at this time. Cream was applied to the areas that she scrathes on her R side, R arm, and R buttock. Call light within reach. Awaiting placement.
[2023-02-15 19:00] VITALS: BP 155/61; PULSE 76; RESP 18; TEMP 36.6; O2SAT 96
[2023-02-15] MEDS: risperiDONE 1 MG TABLET PO (19:09)
[2023-02-16] MEDS: risperiDONE 0.5 MG TABLET 0.25 MG PO (01:33)
[2023-02-16] MEDS: diphenhydrAMINE 25 MG CAPSULE PO (02:34)
--- NOTE | 2023-02-16 06:14 | PC.NURSE ---
Alert and oriented to self only. Patient frequently calling out approximately every 30-60 minutes throughout the night stating i need help, get in here quickly, patient is then unable to state what she is calling out for. Teresa appears anxious and agitated at times of calling out, she will attempt to get up out of bed as well prior to staff arrival in room. Transfers with assist of 2 with EZ stand. Patient observed to be scratching bilateral lower extremities, right upper thigh and buttock and chest, creams applied per orders and PRN diphenhydramine given for persistent itching.
[2023-02-16] MEDS: risperiDONE 0.5 MG TABLET PO (06:34)
[2023-02-16] MEDS: LEVOTHYROXINE 112 MCG TABLET PO (06:34)
[2023-02-16 08:00] VITALS: BP 169/64; PULSE 86; RESP 18; TEMP 36.6; O2SAT 98
[2023-02-16] MEDS: ACETAMINOPHEN 500 MG TABLET 1000 MG PO ×3 (08:30→21:25)
[2023-02-16] MEDS: DOCUSATE SODIUM 100 MG CAPSULE PO (08:30)
[2023-02-16] MEDS: OMEPRAZOLE 20 MG CAPSULE DR PO (08:30)
[2023-02-16] MEDS: TRIAMCINOLONE ACETONIDE CREAM 0.1 % 1 APPLIC TOPICAL ×3 (08:34→21:26)
[2023-02-16] MEDS: EMOLLIENT BASE CREAM 5 APPLIC TOPICAL ×3 (08:36→21:26)
[2023-02-16] MEDS: PSYLLIUM HUSK (WITH SUGAR) 12 GM PACKET PO (08:40)
--- NOTE | 2023-02-16 12:29 | P.IMPN_ITS ---
Progress Note: A&P Assessment and plan (1) Dementia: Problem details: - intermittent agitation and frustration when alone, came to the hospital on Risperdone for this and possible hallucinations, could likely be tapered as an outpatient when in a stable setting - reviewed case with Dipak Ojeda DNP ([facility]) on 02/07: no new med recommendations at this time, continue to support activities - does not appear to require additional psychotropic medications at this time. Status: Acute (2) Knee pain, right: Problem details: - diffuse bilateral lower extremity pain, appreciate input from therapies and Ortho - reassuring imaging, no lateralizing findings on exam Status: Acute (3) Hypothyroidism: Problem details: - TSH of 14 on 02/07 - Synthroid increased from 100mcg to 112 on 02/08 -02/09; will check FT4 to make sure patient doesn't have subclinical hypothyroidism Status: Acute (4) Lymphedema: Problem details: - stable - could potentially benefit from compression wraps or stockings, but holding off given her behaviors at this time. Status: Acute (5) Anemia: Problem details: - normocytic, chronic: Hgb 07/09 was 8.9, Hgb in 05/08 was 10.3, Hgb in September of 2015 was 9.4 Status: Acute (6) Pruritus: Problem details: -likely more behavioral than dermatologic -topical emollients and triamcinolone p.r.n. -Benadryl or Atarax has been effective as well Status: Acute (7) Asymptomatic bacteriuria: Problem details: 02/06/2023 and 02/12/2023: E coli, multi-drug resistance, with ESBL. No indication for treatment given she is asymptomatic. Status: Acute Plan Continue in hospital pending safe discharge plan. Time Spent With Patient Total time spent: Total time spent today is 40 minutes, 30 minutes in coordination of care and discussing with other providers management of behaviors Subjective Date Seen: 02/16/23 Interval history: Lizzie Chavis is a 87 year old female resident of memory care in [place] brought to the emergency room for severe right knee pain keeping her from walking. Patient has dementia is unable to give significant history. She has been noted to be unable to bear weight on her right knee and complains of pain. No known injury. Other than her right knee pain she denies any other concerns though history is of uncertain reliability due to dementia. Subsequent has been complaining of pain in both knees. Time admission patient had no apparent fracture. Knee pain is felt to be primarily osteoarthritis. Over the last 10 days she has been found to have behavioral issues, primarily crying out and attempting to get out of bed without assistance. She was incidentally discovered to have ESBL infection in her urine. She has had no urinary symptoms and has had no treatment for this asymptomatic bacteriuria. Evaluation has not shown any other acute illness or injury to account for her crying out behaviors. She was started on risperidone to help with her behaviors. So far unclear whether this is of benefit. Exam Narrative: Exam Narrative: She is sitting up in a chair and eating breakfast. She appears pleasant and cooperative. Unable to give any meaningful history. Respirations are clear to auscultation. Cardiovascular: S1, S2 with 2/6 systolic ejection murmur. Abdomen is soft without tenderness or mass. Extremities with 1+ edema, support hose in place Const: Vital Signs, click to edit/add: Vital Signs - 24 hr 02/15/23 19:00 02/16/23 08:00 02/16/23 08:00 Temperature 97.9 F 97.9 F Pulse Rate [Right Pulse Oximeter] 76 86 86 Respiratory Rate 18 18 18 Blood Pressure [Ri ght Arm] 155/61 H 169/64 H Pulse Oximetry 96 98 Oxygen Delivery Me thod Room Air Room Air Documenting provider has reviewed patient's vital signs: yes
--- NOTE | 2023-02-16 14:56 | PC.NURSE ---
End of shift nursing note, care provided from 3130-2090: Pt alert to self only. BP slightly elevated this AM, otherwise asymptomatic. Pt req Ax2 w/ EZ Stand, up to recliner, bed, and toilet this shift. Pt had x1 BM this shift, continent. Lotion applied to pt's skin per order, refills provided from Rx this shift. Pt had a couple naps throughout shift, typically nap lasted 10-20min but did have one nap of 40 min or so. Continues on 1:1 PHILLIP. Pt's hair brushed, teeth brushed and shree care w/ brief changed PRN. Pt tolerating diet, eating 100% of all meals. Meds whole with water and drinking fluids when offered. Pt occasionally yelling out this shift, requesting help or for staff to hurry up. Redirection attempted by staff, intermit successfully. No other negative behaviors note this shift. Pt has call light at bedside, chair alarm on and PHILLIP at bedside as well.
[2023-02-16] MEDS: TRAZODONE HCL 50 MG TABLET 25 MG PO ×2 (16:13→21:26)
[2023-02-16] MEDS: risperiDONE 1 MG TABLET PO (18:51)
[2023-02-16 19:00] VITALS: BP 158/80; PULSE 75; RESP 18; TEMP 36.8; O2SAT 96
[2023-02-16] MEDS: MIRTAZAPINE 15 MG TABLET PO (21:26)
[2023-02-16 23:00] VITALS: PULSE 75; RESP 18
--- NOTE | 2023-02-17 06:15 | PC.NURSE ---
Shift note: Pt rested throughout the night, woke up to the bathroom a couple times.
[2023-02-17] MEDS: LEVOTHYROXINE 112 MCG TABLET PO (07:36)
[2023-02-17] MEDS: PSYLLIUM HUSK (WITH SUGAR) 12 GM PACKET PO (07:41)
[2023-02-17 08:04] VITALS: BP 184/74; PULSE 90; RESP 16; TEMP 36.8; O2SAT 96
[2023-02-17] MEDS: hydrOXYzine pamoate 25 MG CAPSULE PO ×3 (08:58→21:26)
[2023-02-17] MEDS: OMEPRAZOLE 20 MG CAPSULE DR PO (08:58)
[2023-02-17] MEDS: EMOLLIENT BASE CREAM 5 APPLIC TOPICAL ×2 (08:59→21:12)
[2023-02-17] MEDS: ACETAMINOPHEN 500 MG TABLET 1000 MG PO ×2 (08:59→21:12)
[2023-02-17] MEDS: TRIAMCINOLONE ACETONIDE CREAM 0.1 % 1 APPLIC TOPICAL ×2 (08:59→21:12)
--- NOTE | 2023-02-17 12:54 | P.IMPN_ITS ---
Progress Note: A&P Assessment and plan (1) Knee pain, right: Problem details: - diffuse bilateral lower extremity pain, appreciate input from therapies and Ortho - reassuring imaging, no lateralizing findings on exam Status: Acute (2) Hypothyroidism: Problem details: Elevated TSH at 18 and low normal to free T4. Agree with increase of levothyroxine from 100-112 mcg daily. Recheck TSH in 6 weeks Status: Acute (3) Lymphedema: Problem details: - stable - could potentially benefit from compression wraps or stockings, but holding off given her behaviors at this time. Status: Acute (4) Anemia: Problem details: - normocytic, chronic: Hgb 07/09 was 8.9, Hgb in 05/08 was 10.3, Hgb in September of 2015 was 9.4 Status: Acute (5) Pruritus: Problem details: Topical moisturizers and triamcinolone Switch from Benadryl to hydroxyzine. Cut finger nail short. Josep stockings to provide some protection for her legs Status: Acute (6) Asymptomatic bacteriuria: Problem details: 02/06/2023 and 02/12/2023: E coli, multi-drug resistance, with ESBL. No indication for treatment given she is asymptomatic. Status: Acute (7) Dementia with agitation: Problem details: Behaviors primarily manifested as episodically crying out. Occasionally trying to get out of better chair without assistance. Has received risperidone without obvious benefit. Will discontinue risperidone and continue supportive cares and environmental modifications Status: Acute Plan Continue in hospital pending safe discharge plan Time Spent With Patient Total time spent: Total time spent today is 20 minutes, 15 minutes in coordination of care discussing with other providers management of behaviors Subjective Date Seen: 02/17/23 Interval history: Lizzie Chavis is a 87 year old female resident of memory care in [place] brought to the emergency room for severe right knee pain keeping her from walking. Patient has dementia is unable to give significant history. She has been noted to be unable to bear weight on her right knee and complains of pain. No known injury. Other than her right knee pain she denies any other concerns though history is of uncertain reliability due to dementia. Subsequent has been complaining of pain in both knees. Time admission patient had no apparent fracture. Knee pain is felt to be primarily osteoarthritis. Over the last 10 days she has been found to have behavioral issues, primarily crying out and attempting to get out of bed without assistance. She was incidentally discovered to have ESBL infection in her urine. She has had no urinary symptoms and has had no treatment for this asymptomatic bacteriuria. Evaluation has not shown any other acute illness or injury to account for her crying out behaviors. She was started on risperidone to help with her behaviors. So far unclear whether this is of benefit. Continues to have episodic episodes of crying out. Nursing staff have found that the reliable way to get it to settle down his to give her something to eat. She continues to scratch and has been getting Benadryl of with uncertain relief. Exam Narrative: Exam Narrative: She is alert and appears in no distress. Not currently agitated. Respirations are clear to auscultation. Cardiovascular: S1, S2. No tachycardia. Abdomen is soft without tenderness or mass. Extremities with minor evidence of excoriation. When I examine her she does begin to scratch quite a bit. She is complaining her legs or itching. Const: Vital Signs, click to edit/add: Vital Signs - 24 hr 02/16/23 19:00 02/16/23 23:00 02/17/23 08:04 Temperature 98.2 F 98.2 F Pulse Rate [Right Pulse Oximeter] 75 75 90 Respiratory Rate 18 18 16 Blood Pressure [ri ght forearm] 158/80 H 184/74 H Pulse Oximetry 96 96 Oxygen Delivery Me thod Room Air Room Air Documenting provider has reviewed patient's vital signs: yes
[2023-02-17] MEDS: TRAZODONE HCL 50 MG TABLET 25 MG PO ×2 (16:33→21:12)
--- NOTE | 2023-02-17 18:36 | PC.NURSE ---
End of shift- Alert to self only. 1:[address] to prevent her from calling out and yelling. Her nails were filed today, and TEDS were applied per DR Nunes's order. He also prescribed PRN Vistaril for her itching I gave it 2x this shift. TEDS were removed at 1800, will need to be reapplied overnight. Scheduled Tylenol was not given @ 1400 because she was sleeping. Took a nap from [id number]. EZ stand Ax2 continues to call out for help/painful, even though we reassure her she is safe. Voiding fine, she had 2 soft BM's this shift. Bed alarms in place and call light within reach
[2023-02-17 19:00] VITALS: BP 168/85; PULSE 85; RESP 16; TEMP 36.6; O2SAT 95
[2023-02-17] MEDS: MIRTAZAPINE 15 MG TABLET PO (21:12)
--- NOTE | 2023-02-17 22:31 | PC.NURSE ---
End of Shift: Patient alert to self. Up to bathroom with 2 assist and EZ stand. PRN Vistaril given x1 for itching.
[2023-02-17 23:30] VITALS: RESP 16
[2023-02-18] MEDS: hydrOXYzine pamoate 25 MG CAPSULE PO ×2 (02:23→08:43)
--- NOTE | 2023-02-18 05:57 | PC.NURSE ---
END OF SHIFT NOTE: PT WITH ADVANCED DEMENTIA. A&O TO SELF. PT IS MOVED WITH 2/EZ STAND. ON RA. BED ALARM ON AND CALL LIGHT WITHIN PT?S REACH. PT DOES NOT USE CALL LIGHT AND WILL YELL OUT ?SOMEONE PLEASE HELP ME!? AND WILL GET UP TO SITTING POSITION AT SIDE OF BED. PT LISTENS WHEN TOLD TO WAIT AND NOT GET UP. PT IS [place]. REPETITIVE SPEECH. PT C/O BACK ITCHING WITH RELIEF FROM PRN VISTARIL. PT SLEPT WELL OVERNIGHT. MORE DIFFICULT THIS MORNING TO REDIRECT.
[2023-02-18] MEDS: LEVOTHYROXINE 112 MCG TABLET PO (06:00)
[2023-02-18 08:00] VITALS: BP 169/84; PULSE 82; RESP 16; TEMP 36.4; O2SAT 99
[2023-02-18] MEDS: OMEPRAZOLE 20 MG CAPSULE DR PO (08:26)
[2023-02-18] MEDS: DOCUSATE SODIUM 100 MG CAPSULE PO (08:27)
[2023-02-18] MEDS: ACETAMINOPHEN 500 MG TABLET 1000 MG PO ×3 (08:27→21:09)
[2023-02-18] MEDS: TRIAMCINOLONE ACETONIDE CREAM 0.1 % 1 APPLIC TOPICAL ×3 (08:27→21:10)
[2023-02-18] MEDS: EMOLLIENT BASE CREAM 5 APPLIC TOPICAL ×3 (08:27→21:09)
[2023-02-18] MEDS: PSYLLIUM HUSK (WITH SUGAR) 12 GM PACKET PO (08:28)
--- NOTE | 2023-02-18 12:16 | PM.IMPN1 ---
Progress Note: A&P Assessment and plan (1) Dementia with agitation: Problem details: Behaviors primarily manifested as episodically crying out. Occasionally trying to get out of better chair without assistance. Has received risperidone without obvious benefit. Will discontinue risperidone and continue supportive cares and environmental modifications. Vistaril given for itching may be helping her agitation a little bit as well Status: Acute (2) Knee pain, right: Problem details: - diffuse bilateral lower extremity pain, appreciate input from therapies and Ortho - reassuring imaging, no lateralizing findings on exam Status: Acute (3) Hypothyroidism: Problem details: Elevated TSH at 18 and low normal to free T4. Agree with increase of levothyroxine from 100-112 mcg daily. Recheck TSH in 6 weeks Status: Acute (4) Lymphedema: Problem details: - stable - could potentially benefit from compression wraps or stockings, but holding off given her behaviors at this time. Status: Acute (5) Anemia: Problem details: - normocytic, chronic: Hgb 07/09 was 8.9, Hgb in 05/08 was 10.3, Hgb in September of 2015 was 9.4 Status: Acute (6) Pruritus: Problem details: Topical moisturizers and triamcinolone Switch from Benadryl to hydroxyzine. Cut finger nail short. Josep stockings to provide some protection for her legs seem to make itching worse. Status: Acute (7) Asymptomatic bacteriuria: Problem details: 02/06/2023 and 02/12/2023: E coli, multi-drug resistance, with ESBL. No indication for treatment given she is asymptomatic. Status: Acute Plan Continue in hospital pending safe discharge plan Time Spent With Patient Total time spent: Total time spent today is 25 minutes, 20 minutes in discussing with other providers ongoing evaluation management of dementia with behaviors and itching Subjective Date Seen: 02/18/23 Interval history: Lizzie Chavis is a 87 year old female resident of memory care in [place] brought to the emergency room for severe right knee pain keeping her from walking. Patient has dementia is unable to give significant history. She has been noted to be unable to bear weight on her right knee and complains of pain. No known injury. Other than her right knee pain she denies any other concerns though history is of uncertain reliability due to dementia. Subsequent has been complaining of pain in both knees. Time admission patient had no apparent fracture. Knee pain is felt to be primarily osteoarthritis. Over the last 10 days she has been found to have behavioral issues, primarily crying out and attempting to get out of bed without assistance. She was incidentally discovered to have ESBL infection in her urine. She has had no urinary symptoms and has had no treatment for this asymptomatic bacteriuria. Evaluation has not shown any other acute illness or injury to account for her crying out behaviors. She was started on risperidone to help with her behaviors. So far unclear whether this is of benefit. Not obviously worse with stopping risperidone Continues to have episodic episodes of crying out. Nursing staff have found that the reliable way to get it to settle down his to give her something to eat. She continues to scratch and has been getting Benadryl of with uncertain relief. Vistaril seems to improve the pruritus and possibly her crying out behaviors. Josep stocking seem to make the itching worse and she would just push them down to scratch her skin so they were not provided any protection. Scratching less with Josep stockings off Exam Narrative: Exam Narrative: She is alert and appears in no distress. Earlier this morning she was crying out. Now she is sitting quietly in her chair. She appears comfortable. Her speech is normal but she is unable to give meaningful answers to questions. Respirations are clear to auscultation. Cardiovascular: S1, S2, regular rate and rhythm. Abdomen is soft without tenderness. Extremities with minimal changes from excoriation in her legs. Const: Vital Signs, click to edit/add: Vital Signs - 24 hr 02/17/23 19:00 02/17/23 23:30 02/18/23 08:00 Temperature 97.8 F Pulse Rate [Right Pulse Oximeter] 85 82 Respiratory Rate 16 16 16 Blood Pressure [Ri ght Arm] Blood Pressure [ri ght forearm] 168/85 H Pulse Oximetry 95 Oxygen Delivery Me thod Room Air 02/18/23 08:00 Temperature 97.5 F L Pulse Rate [Right Pulse Oximeter] 82 Respiratory Rate 16 Blood Pressure [Ri ght Arm] 169/84 H Blood Pressure [ri ght forearm] Pulse Oximetry 99 Oxygen Delivery Me thod Room Air Documenting provider has reviewed patient's vital signs: yes
--- NOTE | 2023-02-18 15:41 | PC.NURSE ---
End of shift note: Pt alert to self only, redirected PRN, at times ineffective. Pt ate 100% of meals, tolerating. Tolerating oral intake as well. Lotion applied to skin for pt c/o itchy, PRN Atarax admin, effective. 1:1 continues at bedside. EZ Stand w/ AX2 to bathroom. Pt up to recliner for majority of shift, bed for napping. Pt's sister visited. Call light at bedside with 1:1.
[2023-02-18] MEDS: TRAZODONE HCL 50 MG TABLET 25 MG PO ×2 (16:12→21:09)
[2023-02-18 18:38] VITALS: BP 191/89; PULSE 81; RESP 20; TEMP 36.7; O2SAT 91
--- NOTE | 2023-02-18 20:58 | PC.NURSE ---
Shift Summary: Patient anxious and calling out when alone, 1:1 throughout shift.
[2023-02-18] MEDS: MIRTAZAPINE 15 MG TABLET PO (21:09)
--- NOTE | 2023-02-19 06:21 | PC.NURSE ---
Shift note: Pt has been calling occasionally tonight for the to go to the BR. Still confused but has been sleeping for most of the night. 1:1 not necessary tonight.
[2023-02-19 08:15] VITALS: BP 180/95; PULSE 75; RESP 18; TEMP 36.3; O2SAT 95
[2023-02-19] MEDS: TRIAMCINOLONE ACETONIDE CREAM 0.1 % 1 APPLIC TOPICAL ×3 (08:17→20:05)
[2023-02-19] MEDS: OMEPRAZOLE 20 MG CAPSULE DR PO (08:18)
[2023-02-19] MEDS: LEVOTHYROXINE 112 MCG TABLET PO (08:18)
[2023-02-19] MEDS: ACETAMINOPHEN 500 MG TABLET 1000 MG PO ×3 (08:25→20:04)
[2023-02-19] MEDS: EMOLLIENT BASE CREAM 5 APPLIC TOPICAL ×3 (08:26→20:05)
[2023-02-19] MEDS: DOCUSATE SODIUM 100 MG CAPSULE PO (08:26)
[2023-02-19] MEDS: PSYLLIUM HUSK (WITH SUGAR) 12 GM PACKET PO (08:26)
--- NOTE | 2023-02-19 10:10 | NUTR.NU ---
RDN with nutrition follow-up for LOS. Patient admitted with dementia and right knee pain. Patient needs placement at a memory care detention per IDT. Per clinical documentation nurse, patient has been consuming 75-100% of most meals since admission. Weight has been fairly stable with current weight at 208lbs 02/19/23 and admission weight of 212lbs on 02/05/23. RDN notes some small weight fluctuations. BMI obese at 31.6 kg/m2. No nutritional concerns or interventions needed at this time. RDN will continue to follow PRN.
--- NOTE | 2023-02-19 12:54 | PC.SOCIAL ---
[facility] planning: [facility] and nursing notes. Faxed requested information and awaiting call back with decision on admit. Called [facility] where resident lives and spoke with nurse, Dottie. Dottie states that if pt is consistently assist of one staff, they could evaluate her returning to that facility. Dottie states pt was not on contact precautions prior to hospitalization, but that this would not be a problem for the facility. personal care worker to follow up as needed.
--- NOTE | 2023-02-19 13:22 | P.IMPN_ITS ---
Progress Note: A&P Assessment and plan (1) Dementia with agitation: Problem details: Behaviors primarily manifested as episodically crying out. Occasionally trying to get out of better chair without assistance. Has received risperidone without obvious benefit. Will discontinue risperidone and continue supportive cares and environmental modifications. Vistaril given for itching may be helping her agitation a little bit as well Status: Acute (2) Knee pain, right: Problem details: - diffuse bilateral lower extremity pain, appreciate input from therapies and Ortho - reassuring imaging. Still complains of some pain with weight-bearing Status: Acute (3) Hypothyroidism: Problem details: Elevated TSH at 18 and low normal to free T4. Agree with increase of levothyroxine from 100-112 mcg daily. Recheck TSH in 6 weeks Status: Acute (4) Lymphedema: Problem details: - stable - could potentially benefit from compression wraps or stockings, but holding off given her behaviors at this time. Status: Acute (5) Anemia: Problem details: - normocytic, chronic: Hgb 07/09 was 8.9, Hgb in 05/08 was 10.3, Hgb in September of 2015 was 9.4 Status: Acute (6) Pruritus: Problem details: Topical moisturizers and triamcinolone Switch from Benadryl to hydroxyzine. Cut finger nail short. Josep stockings to provide some protection for her legs seem to make itching worse. Status: Acute (7) Asymptomatic bacteriuria: Problem details: 02/06/2023 and 02/12/2023: E coli, multi-drug resistance, with ESBL. No indication for treatment given she is asymptomatic. Status: Acute Plan Continue in hospital pending safe discharge plan Time Spent With Patient Total time spent: Total time is 20 minutes, 15 minutes in coordination of care and discussing with other providers disposition Subjective Date Seen: 02/19/23 Interval history: Lizzie Chavis is a 87 year old female resident of memory care in [place] brought to the emergency room for severe right knee pain keeping her from walking. Patient has dementia is unable to give significant history. She has been noted to be unable to bear weight on her right knee and complains of pain. No known injury. Other than her right knee pain she denies any other concerns though history is of uncertain reliability due to dementia. Subsequent has been complaining of pain in both knees. Time admission patient had no apparent fracture. Knee pain is felt to be primarily osteoarthritis. Over the last 10 days she has been found to have behavioral issues, primarily crying out and attempting to get out of bed without assistance. She was incidentally discovered to have ESBL infection in her urine. She has had no urinary symptoms and has had no treatment for this asymptomatic bacteriuria. Evaluation has not shown any other acute illness or injury to account for her crying out behaviors. She was started on risperidone to help with her behaviors. So far unclear whether this is of benefit. Not obviously worse with stopping risperidone Continues to have episodic episodes of crying out. Nursing staff have found th at the reliable way to get it to settle down his to give her something to eat. She continues to scratch and has been getting Benadryl of with uncertain relief. Vistaril seems to improve the pruritus and possibly her crying out behaviors. Josep stocking seem to make the itching worse and she would just push them down to scratch her skin so they were not provided any protection. Scratching less with Josep stockings off Exam Narrative: Exam Narrative: She had an episode of crying out this morning when she woke up but has been relatively quiet through the rest the morning. Eating normally. EZ stand to transfer. She is alert, not agitated. She is not oriented to her circumstances and does not give useful history. She denies any symptoms. Breathing is unlabored. Lower extremities now with Josep hose on. Knees without obvious effusion bruising or tenderness. Const: Vital Signs, click to edit/add: Vital Signs - 24 hr 02/18/23 18:38 02/19/23 08:15 Temperature 98.1 F 97.3 F L Pulse Rate [Right Pulse Oximeter] 81 75 Respiratory Rate 20 18 Blood Pressure [ri ght forearm] 191/89 H 180/95 H Pulse Oximetry 91 95 Oxygen Delivery Me thod Room Air Room Air Documenting provider has reviewed patient's vital signs: yes
--- NOTE | 2023-02-19 13:35 | REH.PT ---
Re-assessed pt's functional mobility. Pt using EZ stand for transfers with nsg. Pt transferred from chair to bed with Ax1-2 using RW. Pt needs heavy VCs for directions d/t advanced dementia. Pt's functional ability is heavily tied to mentation. If pt is cooperative, she is Ax1. If she is non-cooperative, pt needs EZ stand for transfer.
--- NOTE | 2023-02-19 16:52 | PC.SOCIAL ---
Addendum entered by Dalila Reyna [employer] SUPERVISOR 02/19/23 17:03: Elsie also contacted the following facilities: 11. [facility] - left message. 12. [facility] - No private rooms currently but requested to be faxed at [phone]. Faxed information. Original Note: Discharge planning: Late Entry: on 02/15/23, social media community manager, Elsie Harry, called the following alf facilities from the [facility] list of contracted facilities regarding placement: 1. [facility] - Left message. 2. [facility] - Left message[facility] 3. [facility] - Left message. 4. [facility] - left message[facility] 5. [place] [facility] [place] - left message. 6. [facility] - Permanently closed. 7. [facility] - Cannot accept memory care pt. 8. [facility] - Left message. 9. [facility] - Left message. 10. [facility] - Left message.
--- NOTE | 2023-02-19 16:58 | PC.SOCIAL ---
Discharge planning: Called the following correction facilities from the [facility] contracted provider list regarding availability for placement. 1. [facility] - faxed information to [phone]. 2. [facility] - no private rooms. 3. [place] [facility] [place] - left message. 4. [place] [facility] - left message. 5. [place] [facility] - left message. 6. [facility] - left message. 7. [place] [facility] [place] - left message[place] 8. [place] [facility] [place] - left message. 9. [facility] - left message. 10. [facility] - left message. home mission worker to follow up as needed.
[2023-02-19] MEDS: TRAZODONE HCL 50 MG TABLET 25 MG PO ×2 (17:25→20:04)
--- NOTE | 2023-02-19 17:48 | PC.NURSE ---
Pt alert to self. VSS. Pt transfers with EZ stand. Pt had complaints of itching during shift. Scheduled items in EMAR for this. Pt takes pills whole.?
[2023-02-19 19:00] VITALS: BP 193/80; PULSE 76; RESP 16; TEMP 36.4; O2SAT 96
[2023-02-19] MEDS: hydrOXYzine pamoate 25 MG CAPSULE PO (20:04)
[2023-02-19] MEDS: MIRTAZAPINE 15 MG TABLET PO (20:04)
--- NOTE | 2023-02-19 22:26 | PC.NURSE ---
Transfers with EZ stand with assist x 2. Itching noted to chest and right upper leg, received PRN hydroxyzine with effective results.
[2023-02-19 23:30] VITALS: RESP 16
[2023-02-20] MEDS: LEVOTHYROXINE 112 MCG TABLET PO (06:00)
--- NOTE | 2023-02-20 06:40 | PC.NURSE ---
END OF SHIFT NOTE: PT WITH ADVANCED DEMENTIA. A&O TO SELF ONLY.?AMBULATES WITH EZ STAND. RA. PT IMPULSIVE. PT HAS BEEN EASILY REDIRECETED TONIGHT. 1:1 WITH PHILLIP. BED ALARM ON AND CALL LIGHT WITHIN PT?S REACH.
[2023-02-20] MEDS: OMEPRAZOLE 20 MG CAPSULE DR PO (08:00)
[2023-02-20] MEDS: hydrOXYzine pamoate 25 MG CAPSULE PO ×2 (08:00→12:32)
[2023-02-20 08:04] VITALS: BP 173/83; PULSE 80; RESP 12; TEMP 36.2; O2SAT 95
[2023-02-20] MEDS: DOCUSATE SODIUM 100 MG CAPSULE PO (09:05)
[2023-02-20] MEDS: ACETAMINOPHEN 500 MG TABLET 1000 MG PO (09:05)
[2023-02-20] MEDS: EMOLLIENT BASE CREAM 5 APPLIC TOPICAL (09:06)
[2023-02-20] MEDS: PSYLLIUM HUSK (WITH SUGAR) 12 GM PACKET PO (09:06)
[2023-02-20] MEDS: TRIAMCINOLONE ACETONIDE CREAM 0.1 % 1 APPLIC TOPICAL (09:06)
--- NOTE | 2023-02-20 11:02 | PC.SOCIAL ---
Discharge planning: Received call from [facility], [facility], stating they can likely accept pt for admit today. Provided her with nurse to nurse information. Called back to Cristin who still have the pt's referral information. Awaiting decision from Cristin. Called son, Thong, who is aware of possible placement at [facility] in [place]. Son would prefer the [facility] if they are able to accept pt. If pt is discharged to a fdc facility today, son is requesting non-emergency transportation be arranged and is aware this would be private pay. Received call back from [facility] stating they can not accept pt as they do not have a private room available. REceived call back from [facility] stating they can accept pt today and requested she be sent to arrive before 6:00 pm. [facility] provided the nurse to nurse number to be called when transport is arranged at [phone]. Discharge orders to be secure emailed to [facility]. structural layout worker called son and left message requesting call back regarding discharge plans. structural layout worker to follow up as needed.
--- NOTE | 2023-02-20 11:48 | PC.SOCIAL ---
Discharge planning: Called son, Thong, and spoke with him by phone regarding d/c plan. Thong is aware and agrees with pt being discharged today to [facility] in [place]. Son requestd transportation by non-emergency ambulance and is aware this will be arranged for 1:00 today. Son is also aware the transportation will be private pay and was quoted $275 for the transport which he agrees to pay. stucco worker called [facility] and left message with expected transport time. PAS completed and submitted PAS#[id number]. stucco worker to follow up as needed.
--- NOTE | 2023-02-20 11:59 | PC.NURSE ---
Nurse to Nurse report given on [facility].
--- NOTE | 2023-02-20 13:14 | PC.NURSE ---
Discharge: Patient alert and oriented to self, for the most part cooperative, patient questions everything. Patient vitally stable, lungs clear, BS WNL, NO IV. Patient denies pain but says Ouch with activity. Scheduled tylenol given and vistaril given x2.Patient tolerating regular diet, urinating and had 1 large BM. Patient has assigned PHILLIP. Patient cannot sign belongings sheet and discharge form due to dementia. Patient left the floor by stretcher at 1304 to [facility].
--- NOTE | 2023-02-20 13:53 | PM.DS1 ---
DS: Providers Provider Date Seen: 02/20/23 Date of admission: 02/20/23 09:10 Primary care physician: Not a Local Provider Admitting Clinician: Rocío Mendez MD Consults: 02/05/23 16:36 Consult to Physical Therapy [CONS] Routine Comment: Reason(s) for PT Consult:: Weakness Any Restrictions?:: No Restrictions 02/06/23 Consult to Occupational Therapy [CONS] Routine Comment: Reason(s) for OT Consult:: Evaluate and Treat Any Restrictions?:: No Restrictions Attending Physician on discharge: Rocío Mendez MD DS: Diagnosis Discharge Diagnosis (1) Dementia with agitation: Status: Acute Problem details: Behaviors primarily manifested as episodically crying out. Occasionally trying to get out of better chair without assistance. Has received risperidone without obvious benefit. Vistaril given for itching may be helping her agitation a little bit as well (2) Pruritus: Status: Acute Problem details: Topical moisturizers and triamcinolone Switch from Benadryl to hydroxyzine for itching. Cut fingernails short. (3) Asymptomatic bacteriuria: Status: Acute Problem details: 02/06/2023 and 02/12/2023: E coli, multi-drug resistance, with ESBL. No indication for treatment given she is asymptomatic. (4) Hypothyroidism: Status: Acute Problem details: Elevated TSH at 18 and low normal to free T4. Agree with increase of levothyroxine from 100-112 mcg daily. Recheck TSH in 6 weeks (5) Dementia: Status: Acute Problem details: - intermittent agitation and frustration when alone, came to the hospital on Risper[facility] for this. Discontinue during her hospital stay without obvious change in behaviors (6) Lymphedema: Status: Acute Problem details: - stable - could potentially benefit from compression wraps or stockings, but holding off given her behaviors at this time. (7) Anemia: Status: Acute Problem details: - normocytic, chronic: Hgb 07/09 was 8.9, Hgb in 05/08 was 10.3, Hgb in September of 2015 was 9.4 (8) Knee pain, right: Status: Acute Problem details: - diffuse bilateral lower extremity pain, appreciate input from therapies and Ortho - reassuring imaging. Still complains of some pain with weight-bearing (9) Anxiety: Status: Acute Problem details: Chronically treated for anxiety. Mirtazapine added at bedtime of possibly some benefit. DS: Summary Hospital Course Hospital Course: Interval history: Lizzie Chavis is a 87 year old female resident of memory care in [place] brought to the emergency room for severe right knee pain keeping her from walking. Patient has dementia is unable to give significant history. She has been noted to be unable to bear weight on her right knee and complains of pain. No known injury. Other than her right knee pain she denies any other concerns though history is of uncertain reliability due to dementia. Subsequent has been complaining of pain in both knees. Time admission patient had no apparent fracture. Knee pain is felt to be primarily osteoarthritis. Over the last 10 days she has been found to have behavioral issues, primarily crying out and attempting to get out of bed without assistance. She was incidentally discovered to have ESBL infection in her urine. She has had no urinary symptoms and has had no treatment for this asymptomatic bacteriuria. Evaluation has not shown any other acute illness or injury to account for her crying out behaviors. She was started on risperidone to help with her behaviors. Risperidone did not obviously help. Risperidone was stopped and she is not obviously worse. Continues to have episodic episodes of crying out. Nursing staff have found that the reliable way to get it to settle down his to give her something to eat. She continues to scratch and has been getting Benadryl of with uncertain relief. Vistaril seems to improve the pruritus and possibly her crying out behaviors. Josep stocking seem to make the itching worse and she would just push them down to scratch her skin so they were not provided any protection. Status at Discharge Functional status at discharge: uses cane/walker Overall status at discharge: patient is not back to baseline Time Spent with Patient Time attestation: Total time spent providing and/or coordinating discharge services: Time spent: Greater than 30 minutes Exam Narrative: Exam Narrative: She is alert and appears comfortable. Speech is articulate but lacks meaningful communication about her current status. Breathing is unlabored. She is observed to be quite agitated when the nursing staff get her up out of bed but then to calm down while sitting in a chair and eating. Const: Vital Signs, click to edit/add: Vital Signs - 24 hr 02/19/23 19:00 02/19/23 23:30 02/20/23 08:04 Temperature 97.6 F 97.1 F L Pulse Rate [Right Pulse Oximeter] 76 80 Respiratory Rate 16 16 12 Blood Pressure [Ri ght Arm] 173/83 H Blood Pressure [ri ght forearm] 193/80 H Pulse Oximetry 96 95 Oxygen Delivery Me thod Room Air Room Air 02/20/23 08:04 Temperature Pulse Rate [Right Pulse Oximeter] 80 Respiratory Rate 12 Blood Pressure [Ri ght Arm] Blood Pressure [ri ght forearm] Pulse Oximetry Oxygen Delivery Me thod Documenting provider has reviewed patient's vital signs: yes Discharge Plan Discharge Disposition: Xfer [facility] Date of Admission: 02/20/23 09:10 Attending Provider on Discharge: Axel Nunes Primary Care Provider: Provider,Not a Local Condition: Stable Discharge Medications: New emollient [Vanicream] Cream See Rx Instructions .ROUTE .COMPLEX PRNQty: 500 0RF Rx Instructions: Apply topically BID PRN to affected areas triamcinolone acetonide 0.1 % cream 1 applic topical BID PRNQty: 30 0RF mirtazapine 15 mg Tablet 15 mg PO HS Qty: 30 0RF hydroxyzine pamoate 25 mg Capsule 25 mg PO Q4H PRN (Reason: Itching) Qty: 100 0RF Continued acetaminophen 500 mg tablet 1,000 mg PO TID Aquaphor Baby Healing 41 % ointment 1 applic topical BID calcium polycarbophil [Fiber-Lax] 625 mg tablet 1,250 mg PO DAILY levothyroxine 100 mcg tablet 100 mcg PO DAILY docusate sodium 100 mg capsule 100 mg PO DAILY omeprazole 20 mg capsule,delayed release(DR/EC) 20 mg PO DAILY escitalopram oxalate 10 mg tablet 10 mg PO DAILY@20 diclofenac sodium 1 % gel 4 g topical 3XD Anti-Itch (menthol-camphor) 0.5-0.5 % lotion 1 applic topical BID cholecalciferol (vitamin D3) [D3-2000] 50 mcg (2,000 unit) capsule 50 mcg PO DAILY sennosides [senna] 8.6 mg tablet 8.6 mg PO BID PRN saliva stimulant comb. no.3 [Biotene Moisturizing Mouth] 1 spray mucous membrane QID PRN Discontinued trazodone 50 mg tablet 25 mg PO BID@16,20 risperidone 0.5 mg tablet 0.5 mg PO BID oxycodone 5 mg tablet 2.5 mg PO Q6H PRN (Reason: moderate pain) Discharge Orders: Discharge Order (Routine); Ordered 02/20/23 Ordered By: Axel Nunes Additional Instructions: . Activity Level: Up with assist and Use Walker Discharge Diet: Regular Follow Up Appointments: Provider,Not a Local [Primary Care Provider] - Forms: [facility] Info Instructions Admit to: SNF Discharge Potential: Fair Length of Stay: 30-90 days Can use facility standing orders?: Yes Code Status: DNR/DNI Rehab Potential: Fair Therapy: Physical Therapy and Occupational Therapy Therapy Orders: Evaluate and Treat and Gait Training Oxygen: No Urinary Catheter: No Orders are good >30 days: Yes
== END 2023-02-20 13:04 | DRG 884 ==
LOC: ED 14:54 → MEDSURG 14:54
PROVIDERS: Family Medicine; Hospitalist; Internal Medicine; Admitting Provider Family Medicine; Emergency Provider Emergency Medicine; Visit Provider Family Medicine
DX: F03.C11 Unspecified dementia, severe, with agitation (principal); M25.569 Pain in unspecified knee; I89.0 Lymphedema, not elsewhere classified; D64.89 Other specified anemias; E78.5 Hyperlipidemia, unspecified; K21.9 Gastro-esophageal reflux disease without esophagitis; L29.8 Other pruritus; R82.71 Bacteriuria; F41.9 Anxiety disorder, unspecified; I10 Essential (primary) hypertension; E03.9 Hypothyroidism, unspecified; M25.562 Pain in left knee; M25.561 Pain in right knee; M25.572 Pain in left ankle and joints of left foot; M25.571 Pain in right ankle and joints of right foot; M79.605 Pain in left leg; M79.604 Pain in right leg
CPT/HCPCS: 36415; 73502; 73562; 80048; 80076; 81001; 84439; 84443; 85025; 85027; 85651; 86140; 87081; 87086; 87186; 97116; 97162; 97165; 97530; 99284; A9270; G0378

== ENCOUNTER 2023-02-20 12:50 | Outpatient (CLI) | payer MEDICARE, SELFPAY | END 2023-02-20 12:51 | disposition home or self-care (01) | LOC: AMB 02-22 15:31 | PROVIDERS: Visit Provider Student in an Organized Health Care Education/Training Program | DX: F03.911 Unspecified dementia, unspecified severity, with agitation (principal); L29.9 Pruritus, unspecified; R82.71 Bacteriuria; E03.9 Hypothyroidism, unspecified | CPT/HCPCS: A0425; A0428 ==